=== PATIENT | female | born 1940 | race Caucasian/White ===

== ENCOUNTER → 2018-04-01 13:47 | Outpatient (BNVA) | payer MEDICARE, OTHER, SELFPAY | PROVIDERS: Visit Provider Student in an Organized Health Care Education/Training Program | DX: M65.331 Trigger finger, right middle finger (principal); Z98.890 Other specified postprocedural states | CPT/HCPCS: 99213 ==

== ENCOUNTER 2018-05-07 08:20 | Day surgery (SDC) | payer MEDICARE, OTHER, SELFPAY ==
[2018-05-07 08:32] VITALS: BP 177/74; PULSE 68; RESP 16; TEMP 36.2; O2SAT 93
[2018-05-07] MEDS: Bupivacaine 0.5% Pres-Free 30 ML VIAL (09:53)
[2018-05-07] MEDS: Lidocaine 1% Multi-Dose 50 ML VIAL (09:55)
--- NOTE | 2018-05-07 10:11 | W.PM.DSUDISC ---
Discharge Plan Disposition Patient Disposition: HOME Condition: Good Discharge Details Reason For Visit: RMF Trigger Finger Attending Provider: Sree Mejía Primary Care Provider: Genoveva Boss Home Meds and New Rx's Prescriptions: Continued calcium carbonate-vitamin D3 1 EACH tablet 1 ea PO BID RF: 0 Zyrtec 10 MG capsule 1 cap PO DAILY PRN Qty: 30 RF: 11 atenolol 25 MG tablet 25 mg PO DAILY Qty: 30 RF: 12 levothyroxine 50 MCG tablet 50 mcg PO DAILY Qty: 30 RF: 12 hydrochlorothiazide 25 MG tablet 0.5 tab PO DAILY Qty: 30 RF: 12 Prilosec OTC 20 mg Tablet,Delayed Release (Dr/Ec) 20 mg PO PRN PRNRF: 0 ibuprofen 600 MG tablet 600 mg PO TID PRN PRNQty: 30 RF: 3 acetaminophen [Acetaminophen Extra Strength] 500 MG tablet 1,000 mg PO TID PRN PRNQty: 90 RF: 0 Discharge Instructions Stand Alone Forms: Kym Carreon Finger Kristel Santiago (DSU) Referrals: Sree Mejía MD [ [facility] STAFF PHYSICIAN] - Activity:: Elevate Remove Dressings/Wound Care:: 48 hours Shower/Bathe:: 48 hours Diet:: As Tolerated Discharge Orders Discharge Orders: Discharge Order (Routine); Ordered 05/07/18 Ordered By: Sree Mejía DS: Diagnosis Discharge Diagnosis (1) Trigger finger, right middle finger: Status: Chronic
--- NOTE | 2018-05-08 05:55 | ROE_ITS ---
Date of service: 05/07/18 Time of Service: 13:53 Operative Note DATE OF PROCEDURE: 05/07/18 PRE-OP DIAGNOSIS: Trigger Finger -right middle finger POST-OP DIAGNOSIS: same PROCEDURE: Trigger Finger Release -right middle finger SURGEON: Sree Mejía ANESTHESIA: local ESTIMATED BLOOD LOSS: 5 PATHOLOGY: none sent COMPLICATIONS: None Patient was transported to: same day Patient's condition: stable Indications: I have seen Annalisa in clinic for symptoms of a trigger finger. The catching, clicking, locking, and pain limited function. The diagnosis of trigger finger was evident. The symptoms had not responded to conservative measures. I discussed trigger finger release with the patient. I reviewed the risks of the procedure to include, but not limited to, bleeding, infection, pain, stiffness, incomplete release, damage to nerves or vessels, continued catching, recurrence. Despite these risks, the patient elected to proceed. Findings: There was a tightened A1 bartolo which was released. The flexor tendons were inspected and did show some fraying along their periphery. The patient was able to move the finger without any catching, clicking, or locking. Procedure Description: Annalisa was greeted in the preoperative holding area where the correct side was identified and marked. The consent was reviewed with the patient and signed. All questions were answered. She was taken back to the operating room. The patient was placed into the supine position on the operating room table with the right arm on an arm board. All bony prominences were well padded. No prophylactic antibiotics were administered since this was a clean, elective hand surgical case. The right arm was then prepped with Chloraprep and draped in a standard fashion with stockinette and extremity drape. A timeout to confirm correct identity, side and site, procedure, allergies, anesthesia, and medical concerns was performed. The surgical site was marked as a longitudinal incision directly over the A1 bartolo of the involved digit, middle finger. This was confirmed with palpation during finger flexion. This area, overlying the metacarpal head, was then anesthetized with 1% Lidocaine. The patient tolerated this well and once the anesthetic had setup, the procedure began. A longitudinal incision was made through skin only, approximately 1cm. The deep tissues were dissected bluntly. Once the A1 bartolo and flexor tendons were identified the soft tissue including neurovascular structures were retracted medially and laterally. There were no crossing structures over the A1 bartolo. The proximal edge of the bartolo was identified and the bartolo was incised with tenotomy scissors. There was a rel ease of the tendons once this was fully released. The tendons were then removed from the wound and inspected. Excess synovium was resected. The tendons were then returned and the patient was asked to move the finger into deep flexion and back to extension. There was no recreation of the pre-operative symptoms. The hand was then once more inspected for any A0 bartolo or area of possible constri ction. The wound was then irrigated and the skin was closed with a 4-0 Nylon. This was dressed with gauze and a Conform dressing. The patient tolerated the procedure well and was returned to the Same Day Surgery area in a stable condition suffering no known complication.
== END 2018-05-07 10:41 | disposition home or self-care (01) ==
PROVIDERS: Visit Provider Student in an Organized Health Care Education/Training Program
PROC: (CPT 26055; principal; 2018-05-07 10:15)
DX: M65.331 Trigger finger, right middle finger (principal)
CPT/HCPCS: 26055

== ENCOUNTER → 2018-05-15 08:23 | Outpatient (BNVA) | payer MEDICARE, OTHER, SELFPAY | PROVIDERS: Visit Provider Student in an Organized Health Care Education/Training Program | DX: M65.331 Trigger finger, right middle finger (principal); Z47.89 Encounter for other orthopedic aftercare; I10 Essential (primary) hypertension ==

== ENCOUNTER 2018-07-01 16:56 | Emergency (ER) | payer MEDICARE, OTHER, SELFPAY ==
[2018-07-01] VITALS (31 sets, daily range): BP systolic 161–193; BP diastolic 71–105; PULSE 75–102; RESP 10–39; TEMP 36.7–37; O2SAT 92–100
--- NOTE | 2018-07-01 17:01 | W.ED.GENAD ---
Discharge Plan Disposition Patient Disposition: [facility] Condition: Stable Discharge Details Chief Complaint: Chest Pain Clinical Impression: Non-ST elevation [place] (NSTEMI) Primary Care Provider: Genoveva Boss ED Provider: Adam Ashton Home Meds and New Rx's Prescriptions: No Action calcium carbonate-vitamin D3 1 EACH tablet 1 ea PO BID RF: 0 Zyrtec 10 MG capsule 1 cap PO DAILY PRN Qty: 30 RF: 11 atenolol 25 MG tablet 25 mg PO DAILY Qty: 30 RF: 12 levothyroxine 50 MCG tablet 50 mcg PO DAILY Qty: 30 RF: 12 hydrochlorothiazide 25 MG tablet 0.5 tab PO DAILY Qty: 30 RF: 12 Prilosec OTC 20 mg Tablet,Delayed Release (Dr/Ec) 20 mg PO PRN PRNRF: 0 ibuprofen 600 MG tablet 600 mg PO TID PRN PRNQty: 30 RF: 3 acetaminophen [Acetaminophen Extra Strength] 500 MG tablet 1,000 mg PO TID PRN PRNQty: 90 RF: 0 Medical Decision Making 78 yo female with hx of HTN comes in with intermittent chest/back/left arm stabbing sensation that lasts 15 minutes or so and goes away on it's own since earlier in June. Denies having this in the past. Denies n/v, sob, abd pain. She saw her pcp's office today and had an ekg showing possible old heart attack so was sent here. She is walking without distress or pain and has no symptoms now. Denies any pain with exertion, she does state that some positions make the pain worse. She has normal peripheral pulses, clear lungs, no leg swelling or calf pain. Her heart score is 3, will send troponin. She hasn't had pain for over 4 hours so one troponin should be sufficient to rule out nstemi. No tearing back pain and normal vascular exam so doubt dissection. No hypoxia, tachycardia or evidence of dvt so doubt PE. Normal lung exam and no pleuritic pain, no cough or fever so doubt pna and ptx. She does state she has a hx of compression fx's, denies recent trauma. Does have pain with palpation to t3-4 on exam, will obtain xrays to eval for possible compression fx. labs show troponin of over 7, remains HD stable on exam and pain free. Xrays negative. Spoke with cardiology [place] [facility] [place], who recommends 300mg plavix instead of 75mg I ordered (also ordered asa and heparin) and they will accept the pt (accepting is Dr. Butterfield) in transfer but request CTA to eval for dissection first. CTA on my read shows no dissection, awaiting vrad report pt remains HD stable, vrad agrees no acute findings. Await[place] to [facility] [place] Differential Diagnosis acs, anxiety, dissection, musculoskeletal chest pain Medical Records Medical records reviewed: Yes I reviewed the patient's medical records. Imaging Data Radiologic Study: Attestation: I personally reviewed and interpreted this imaging study as follows: Imaging: X-Ray Radiologist's impression: EXAM: XR Thoracic Spine, 3 Views EXAM DATE/TIME: 07/01/2018 5:33 PM CLINICAL HISTORY: 78 years old, female; Pain in thoracic spine; Without myelpathy or radiculopathy TECHNIQUE: Imaging protocol: XR of the thoracic spine, 3 views. COMPARISON: CR THORACIC SPINE 12/06/2016 10:35 AM FINDINGS: Vertebrae: Stable chronic mid thoracic compression deformities, with approximately 50% loss in vertebral body height. No acute skeletal pathology is otherwise grossly noted. There are multilevel degenerative changes of the thoracic spine, as manifested by decreased intervertebral disc space, endplate sclerosis, and multilevel anterior osteophytes. Spinal canal appears patent. There is diffuse facet joint hypertrophy. Soft tissues: Normal. Other findings: No acute findings in the visualized chest. 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 Radiologic Study #2: Attestation: I personally reviewed and interpreted this imaging study as follows: Imaging: X-Ray Radiologist's impression: EXAM: XR Chest, 2 Views EXAM DATE/TIME: 07/01/2018 5:18 PM CLINICAL HISTORY: 78 years old, female; Chest pain; Type not specified TECHNIQUE: Imaging protocol: XR of the chest, 2 views. COMPARISON: No relevant prior studies available. FINDINGS: Lungs: Unremarkable. No consolidation. Pleural space: Unremarkable. No pleural effusion. No pneumothorax. Heart/Mediastinum: Unremarkable. No cardiomegaly. Bones/joints: No acute skeletal abnormality. IMPRESSION: Negative for acute thoracic pathology. Radiologic Study #3: Attestation: I personally reviewed and interpreted this imaging study as follows: Imaging: CT Scan Radiologist's impression: IMPRESSION: 1. Negative for acute thoracic pathology. 2. Chronic/incidental findings as detailed above. Lab Data Lab results reviewed: Yes I reviewed the patient's lab results. ECG Data Attestation: I personally reviewed and interpreted this ECG (s) as follows: Prior ECG tracings: available for review Interpretation: sinus rhythm ,rate of 82, qtc 437, no acute st t wave ischemic changes compared to her old ekg from 2006 HPI General Mode of arrival: ambulatory. Date/Time Provider Initiated Documentation: 07/01/18 16:59. Limitations to Documentation: no limitations. Information obtained by: patient. History of Present Illness 78 year old F presents to the emergency department with the chief complaint of chest pain, described as moderate, Quality is described as stabbing and aching, and is localized to the chest, back, left, right and upper extremity. Patient started experiencing this week(s) (3) and it has been intermittent. No relieving factors improve symptom(s), No exacerbating factors reported . Patient notes no other symptoms.. Patient did receive the following treatments prior to arrival, none Related Data Home Medications Medication Instructions Recorded Confirmed Zyrtec 1 cap PO DAILY PRN #30 cap 06/06/12 07/01/18 calcium carbonate-vitamin D3 1 ea PO BID 06/06/12 07/01/18 acetaminophen [Acetaminophen Extra 1,000 mg PO TID PRN PRN #90 tab 12/10/16 07/01/18 Strength] atenolol 25 mg PO DAILY #30 tab 07/22/17 07/01/18 hydrochlorothiazide 0.5 tab PO DAILY #30 tab 07/22/17 07/01/18 levothyroxine 50 mcg PO DAILY #30 tab 07/22/17 07/01/18 Prilosec OTC 20 mg PO PRN PRN 05/07/18 07/01/18 ibuprofen 600 mg PO TID PRN PRN #30 tab 05/07/18 07/01/18 Previous Rx's Medication Instructions Recorded acetaminophen [Acetaminophen Extra 1,000 mg PO TID PRN PRN #90 tab 12/10/16 Strength] atenolol 25 mg PO DAILY #30 tab 07/22/17 hydrochlorothiazide 0.5 tab PO DAILY #30 tab 07/22/17 levothyroxine 50 mcg PO DAILY #30 tab 07/22/17 ibuprofen 600 mg PO TID PRN PRN #30 tab 05/07/18 Allergies Allergy/AdvReac Type Severity Reaction Status Date / Time No Known Allergies Allergy Unverified 07/01/18 17:02 General Stated Complaint: Chest Pain SAMARA: 3 Review of Systems Review of Systems All systems reviewed & are unremarkable except as noted in HPI and below Constitutional Denies chills, Denies fever(s) and Denies weakness Cardiovascular Denies dyspnea Respiratory Denies cough and Denies dyspnea Gastrointestinal Denies abdominal pain, Denies nausea and Denies vomiting Integumentary/Breasts Denies rash Neurologic Denies weakness [facility] Medical History Back pain Dyspnea Essential hypertension Hypothyroidism SNHL (sensorineural hearing loss) Surgical History BROKEN TIBIA (~2000) Colonoscopy - IV Sedation (11/19/16) Family History Mother Essential hypertension Heart disease Asthma Father Heart disease Sister Essential hypertension Heart disease Hyperlipidemia Sister No problems noted. Brother No problems noted. Son Diabetes Essential hypertension Son Essential hypertension Son No problems noted. Social History Smoking/Tobacco Use Status: Never Drug use: Never Do you feel safe at home: Yes Do you feel safe in your relationship?: Yes Exam Const General: no acute distress Orientation: alert HENMT Head: normal to inspection Ears: external ears normal General nose exam: external nose normal Mouth: moist mucous membranes Eyes General: appearance normal, both eyes and all related structures Neck Neck: normal visual inspection Resp Effort & Inspection: normal respiratory effort and able to speak in complete sentences Cardio Rate: regular rate Skin General skin exam: no rashes or lesions noted Neuro General: alert and oriented x3 Extrem General: normal to inspection Psych Mental Status: mental status grossly normal Course Vital Signs Respiratory Rate 16 07/01/18 16:58 Temperature Source Temporal Artery Scan 07/01/18 16:58 Respiratory Rate 16 07/01/18 16:58 Blood Pressure Position Supine 07/01/18 16:58 Oxygen Delivery Method Room Air 07/01/18 16:58 Oxygen Flow Rate 0 07/01/18 16:58 Pain Level 0 07/01/18 16:58
--- NOTE | 2018-07-01 17:08 | ED.GENADUL_ITS ---
Discharge Plan Disposition Patient Disposition: [facility] Condition: Stable Discharge Details Chief Complaint: Chest Pain Clinical Impression: Non-ST elevation [place] (NSTEMI) Primary Care Provider: Genoveva Boss ED Provider: Adam Ashton Home Meds and New Rx's Prescriptions: No Action calcium carbonate-vitamin D3 1 EACH tablet 1 ea PO BID RF: 0 Zyrtec 10 MG capsule 1 cap PO DAILY PRN Qty: 30 RF: 11 atenolol 25 MG tablet 25 mg PO DAILY Qty: 30 RF: 12 levothyroxine 50 MCG tablet 50 mcg PO DAILY Qty: 30 RF: 12 hydrochlorothiazide 25 MG tablet 0.5 tab PO DAILY Qty: 30 RF: 12 Prilosec OTC 20 mg Tablet,Delayed Release (Dr/Ec) 20 mg PO PRN PRNRF: 0 ibuprofen 600 MG tablet 600 mg PO TID PRN PRNQty: 30 RF: 3 acetaminophen [Acetaminophen Extra Strength] 500 MG tablet 1,000 mg PO TID PRN PRNQty: 90 RF: 0 Medical Decision Making 78 yo female with hx of HTN comes in with intermittent chest/back/left arm stabbing sensation that lasts 15 minutes or so and goes away on it's own since earlier in June. Denies having this in the past. Denies n/v, sob, abd pain. She saw her pcp's office today and had an ekg showing possible old heart attack so was sent here. She is walking without distress or pain and has no symptoms now. Denies any pain with exertion, she does state that some positions make the pain worse. She has normal peripheral pulses, clear lungs, no leg swelling or calf pain. Her heart score is 3, will send troponin. She hasn't had pain for over 4 hours so one troponin should be sufficient to rule out nstemi. No tearing back pain and normal vascular exam so doubt dissection. No hypoxia, tachycardia or evidence of dvt so doubt PE. Normal lung exam and no pleuritic pain, no cough or fever so doubt pna and ptx. She does state she has a hx of compression fx's, denies recent trauma. Does have pain with palpation to t3-4 on exam, will obtain xrays to eval for possible compression fx. labs show troponin of over 7, remains HD stable on exam and pain free. Xrays negative. [place] [facility] [place], who recommends 300mg plavix instead of 75mg I ordered (also ordered asa and heparin) and they will accept the pt (accepting is Dr. Butterfield) in transfer but request CTA to eval for dissection first. CTA on my read shows no dissection, awaiting vrad report pt remains HD stable, vrad agrees no acute findings. [place] [facility] [place] Differential Diagnosis acs, anxiety, dissection, musculoskeletal chest pain Medical Records Medical records reviewed: Yes I reviewed the patient's medical records. Imaging Data Radiologic Study: Attestation: I personally reviewed and interpreted this imaging study as follows: Imaging: X-Ray Radiologist's impression: EXAM: XR Thoracic Spine, 3 Views EXAM DATE/TIME: 07/01/2018 5:33 PM CLINICAL HISTORY: 78 years old, female; Pain in thoracic spine; Without myelpathy or radiculopathy TECHNIQUE: Imaging protocol: XR of the thoracic spine, 3 views. COMPARISON: CR THORACIC SPINE 12/06/2016 10:35 AM FINDINGS: Vertebrae: Stable chronic mid thoracic compression deformities, with approximately 50% loss in vertebral body height. No acute skeletal pathology is otherwise grossly noted. There are multilevel degenerative changes of the thoracic spine, as manifested by decreased intervertebral disc space, endplate sclerosis, and multilevel anterior osteophytes. Spinal canal appears patent. There is diffuse facet joint hypertrophy. Soft tissues: Normal. Other findings: No acute findings in the visualized chest. 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 Radiologic Study #2: Attestation: I personally reviewed and interpreted this imaging study as follows: Imaging: X-Ray Radiologist's impression: EXAM: XR Chest, 2 Views EXAM DATE/TIME: 07/01/2018 5:18 PM CLINICAL HISTORY: 78 years old, female; Chest pain; Type not specified TECHNIQUE: Imaging protocol: XR of the chest, 2 views. COMPARISON: No relevant prior studies available. FINDINGS: Lungs: Unremarkable. No consolidation. Pleural space: Unremarkable. No pleural effusion. No pneumothorax. Heart/Mediastinum: Unremarkable. No cardiomegaly. Bones/joints: No acute skeletal abnormality. IMPRESSION: Negative for acute thoracic pathology. Radiologic Study #3: Attestation: I personally reviewed and interpreted this imaging study as follows: Imaging: CT Scan Radiologist's impression: IMPRESSION: 1. Negative for acute thoracic pathology. 2. Chronic/incidental findings as detailed above. Lab Data Lab results reviewed: Yes I reviewed the patient's lab results. ECG Data Attestation: I personally reviewed and interpreted this ECG (s) as follows: Prior ECG tracings: available for review Interpretation: sinus rhythm ,rate of 82, qtc 437, no acute st t wave ischemic changes compared to her old ekg from 2006 HPI General Mode of arrival: ambulatory . Date/Time Provider Initiated Documentation: 07/01/18 16:59 . Limitations to Documentation: no limitations . Information obtained by: patient . History of Present Illness 78 year old F presents to the emergency department with the chief complaint of chest pain, described as moderate, Quality is described as stabbing and aching, and is localized to the chest, back, left, right and upper extremity. Patient started experiencing this week(s) (3) and it has been intermittent. No relieving factors improve symptom(s), No exacerbating factors reported . Patient notes no other symptoms.. Patient did receive the following treatments prior to arrival, none Related Data Home Medications Medication Instructions Recorded Confirmed Zyrtec 1 cap PO DAILY PRN #30 cap 06/06/12 07/01/18 calcium carbonate-vitamin D3 1 ea PO BID 06/06/12 07/01/18 acetaminophen [Acetaminophen Extra 1,000 mg PO TID PRN PRN #90 tab 12/10/16 07/01/18 Strength] atenolol 25 mg PO DAILY #30 tab 07/22/17 07/01/18 hydrochlorothiazide 0.5 tab PO DAILY #30 tab 07/22/17 07/01/18 levothyroxine 50 mcg PO DAILY #30 tab 07/22/17 07/01/18 Prilosec OTC 20 mg PO PRN PRN 05/07/18 07/01/18 ibuprofen 600 mg PO TID PRN PRN #30 tab 05/07/18 07/01/18 Previous Rx's Medication Instructions Recorded acetaminophen [Acetaminophen Extra 1,000 mg PO TID PRN PRN #90 tab 12/10/16 Strength] atenolol 25 mg PO DAILY #30 tab 07/22/17 hydrochlorothiazide 0.5 tab PO DAILY #30 tab 07/22/17 levothyroxine 50 mcg PO DAILY #30 tab 07/22/17 ibuprofen 600 mg PO TID PRN PRN #30 tab 05/07/18 Allergies Allergy/AdvReac Type Severity Reaction Status Date / Time No Known Allergies Allergy Unverified 07/01/18 17:02 General Stated Complaint: Chest Pain SAMARA: 3 Review of Systems Review of Systems All systems reviewed & are unremarkable except as noted in HPI and below Constitutional Denies chills, Denies fever(s) and Denies weakness Cardiovascular Denies dyspnea Respiratory Denies cough and Denies dyspnea Gastrointestinal Denies abdominal pain, Denies nausea and Denies vomiting Integumentary/Breasts Denies rash Neurologic Denies weakness [facility] Medical History Back pain Dyspnea Essential hypertension Hypothyroidism SNHL (sensorineural hearing loss) Surgical History BROKEN TIBIA (~2000) Colonoscopy - IV Sedation (11/19/16) Family History Mother Essential hypertension Heart disease Asthma Father Heart disease Sister Essential hypertension Heart disease Hyperlipidemia Sister No problems noted. Brother No problems noted. Son Diabetes Essential hypertension Son Essential hypertension Son No problems noted. Social History Smoking/Tobacco Use Status: Never Drug use: Never Do you feel safe at home: Yes Do you feel safe in your relationship?: Yes Exam Const General: no acute distress Orientation: alert HENMT Head: normal to inspection Ears: external ears normal General nose exam: external nose normal Mouth: moist mucous membranes Eyes General: appearance normal, both eyes and all related structures Neck Neck: normal visual inspection Resp Effort & Inspection: normal respiratory effort and able to speak in complete sentences Cardio Rate: regular rate Skin General skin exam: no rashes or lesions noted Neuro General: alert and oriented x3 Extrem General: normal to inspection Psych Mental Status: mental status grossly normal Course Vital Signs Respiratory Rate 16 07/01/18 16:58 Temperature Source Temporal Artery Scan 07/01/18 16:58 Respiratory Rate 16 07/01/18 16:58 Blood Pressure Position Supine 07/01/18 16:58 Oxygen Delivery Method Room Air 07/01/18 16:58 Oxygen Flow Rate 0 07/01/18 16:58 Pain Level 0 07/01/18 16:58
[2018-07-01 17:15] LABS: Abs Immature Grans 0.01 k/cumm (0.0-0.09); Absolute Basophil Count 0.03 k/cumm (0.0-0.2); Absolute Eosinophil Count 0.17 k/cumm (0.0-0.7); Absolute Lymphocyte Count 2.48 k/cumm (1.2-3.4); Absolute Monocyte Count 0.73 k/cumm (0.11-0.7); Absolute Neutrophil Count 3.62 k/cumm (1.2-6.7); Basophils % 0.4; Eosinophils % 2.4; HCT 43.4 % (36.0-46.0); HGB 14.6 g/dL (12.0-15.5); Immature Grans % 0.1; Lymphocytes % 35.2; Mean Corp. HGB Concentration 33.6 g/dL (32.0-36.0); Mean Corpuscular Hemoglobin 30.9 pg (27.0-33.0); Mean Corpuscular Volume 91.9 fL (80-95); Mean Platelet Volume 9.1 fL (8.0-11.0); Monocytes % 10.4; Neutrophils % 51.5; Platelet Count 271 x1000/uL (130-400); RBC 4.72 m/cumm (4.00-5.20); RBC Distribution Width 13.6 % (11.7-14.6); White Blood Cell Count 7.04 k/cumm (4.4-10.8)
--- NOTE | 2018-07-01 17:17 | DI.COMBO_ITS ---
SYMPTOM/DIAGNOSIS: UPPER BACK/CHEST PAIN CT ANGIOGRAPHY CHEST: CT angiography was performed with multi slice acquisition and multi planar and 3D reconstruction. CT angiography of the chest was performed with a bolus infusion of 100 cc's of Omnipaque 350. Note is made of mild chronic anterior vertebral compression fractures of T 8 and T 9 vertebral bodies, unchanged from chest film of 12/06/16. No evidence of pulmonary embolic disease. Thoracic aorta and major branches are within normal limits. No aneurysm or dissection. No mediastinal or hilar adenopathy. Apparent surgical clips noted in right axilla. The lungs are predominantly clear with minimal linear scarring in the lung bases. Tracheobronchial tree appears intact. Images obtained through the upper abdomen show unremarkable appearance of visualized portions of liver, spleen, pancreas, adrenals and kidneys. Upper abdominal aorta and major branches appear intact. CONCLUSION: No evidence of acute thoracic pathology. THORACIC SPINE: Three views were obtained and show previously present T 8 and T 9 vertebral compression fractures, no change in appearance from 2017 chest film. Mild hypertrophic spurring of the vertebral endplates noted throughout the thoracic region. No evidence of acute process. PA AND LATERAL CHEST: The heart is not enlarged. There appear to be changes of COPD. No pleural effusion. The lungs are otherwise clear. CONCLUSION: No evidence of acute disease.
[2018-07-01 17:27] LABS: INR 0.9 (0.9-1.1); PTT Activated 20.7 sec (21.0-31.4); Prothrombin Time 9.3 sec (9.3-11.0)
[2018-07-01 17:28] LABS: ALT 36 U/L (12-78); AST 86 U/L (15-37); Albumin 4.2 g/dL (3.4-5.0); Alkaline Phosphatase 83 U/L (46-116); Anion Gap 7.6 mmol/L (3-11); BUN 15 mg/dL (7-18); Bilirubin, Total 0.5 mg/dL (0.2-1.0); CO2 31.4 mmol/L (21.0-32.0); CREATININE 0.76 mg/dL (0.55-1.02); Calcium 9.9 mg/dL (8.5-10.1); Chloride 98 mmol/L (98-107); Glucose 96 mg/dL (70-100); Potassium 3.9 mmol/L (3.5-5.1); Sodium 137 mmol/L (136-145); Total Protein 8.1 g/dL (6.4-8.2)
[2018-07-01 17:31] LABS: Troponin I 7.47 ng/mL (0.00-0.06)
[2018-07-01] MEDS: Aspirin 81 MG CHEW 324 MG CH (17:43)
[2018-07-01] MEDS: Clopidogrel 75 MG TAB PO (17:43)
--- NOTE | 2018-07-01 17:57 | DI.VRAD_ITS ---
EXAM: XR Thoracic Spine, 3 Views EXAM DATE/TIME: 07/01/2018 5:33 PM CLINICAL HISTORY: 78 years old, female; Pain in thoracic spine; Without myelpathy or radiculopathy TECHNIQUE: Imaging protocol: XR of the thoracic spine, 3 views. COMPARISON: CR THORACIC SPINE 12/06/2016 10:35 AM FINDINGS: Vertebrae: Stable chronic mid thoracic compression deformities, with approximately 50% loss in vertebral body height. No acute skeletal pathology is otherwise grossly noted. There are multilevel degenerative changes of the thoracic spine, as manifested by decreased intervertebral disc space, endplate sclerosis, and multilevel anterior osteophytes. Spinal canal appears patent. There is diffuse facet joint hypertrophy. Soft tissues: Normal. Other findings: No acute findings in the visualized chest. 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 Dictated and Authenticated by: Taz Rosario MD. Ordering:JUSTIN Medina MD
--- NOTE | 2018-07-01 17:58 | DI.VRAD_ITS ---
EXAM: XR Chest, 2 Views EXAM DATE/TIME: 07/01/2018 5:18 PM CLINICAL HISTORY: 78 years old, female; Chest pain; Type not specified TECHNIQUE: Imaging protocol: XR of the chest, 2 views. COMPARISON: No relevant prior studies available. FINDINGS: Lungs: Unremarkable. No consolidation. Pleural space: Unremarkable. No pleural effusion. No pneumothorax. Heart/Mediastinum: Unremarkable. No cardiomegaly. Bones/joints: No acute skeletal abnormality. IMPRESSION: Negative for acute thoracic pathology. Dictated and Authenticated by: Taz Rosario MD. Ordering:JUSTIN Medina MD
[2018-07-01] MEDS: Omnipaque 350 MG/ML 100 ML BTL IJ (18:22)
--- NOTE | 2018-07-01 18:38 | DI.VRAD_ITS ---
EXAM: CT Angiography Chest With Contrast EXAM DATE/TIME: 07/01/2018 5:55 PM CLINICAL HISTORY: 78 years old, female; Chest pain; Type not specified TECHNIQUE: Imaging protocol: Axial computed tomographic angiography images of the chest with intravenous contrast using CT angiography protocol. 3D rendering: MIP reconstructed images were created and reviewed. Radiation optimization: All CT scans at this facility use at least one of these dose optimization techniques: automated exposure control; mA and/or kV adjustment per patient size (includes targeted exams where dose is matched to clinical indication); or iterative reconstruction. Contrast material: OMNIPAQUE 350; Contrast volume: 100 ml; Contrast route: IV; COMPARISON: CR XR CHEST 2V PA LATERAL 07/01/2018 5:27 PM FINDINGS: Pulmonary arteries: Normal. No pulmonary emboli. Aorta: The aorta demonstrates mild atherosclerotic calcification. Normal course and caliber to the aorta otherwise. No acute aortic pathology. Lungs: Mild pulmonary hyperexpansion, favoring mild COPD. Mild bilateral apical capping. Mild diffuse cylindrical bronchiectasis. Mild bilateral linear atelectasis/scarring. No acute interstitial or airspace disease. Pleural space: Normal. No pneumothorax. No pleural effusion. Heart: Normal. No cardiomegaly. No pericardial effusion. Upper abdomen: No acute findings in the visualized upper abdominal organs. Lymph nodes: Question of prior right axillary lymph node dissection. No concerning thoracic adenopathy by CT size criteria. Bones/joints: No acute skeletal abnormality or aggressive osseous lesion. Chronic compression injuries of the mid thoracic vertebra specifically, at T7 and T8 with approximately 50% loss in vertebral body height. Multilevel degenerative changes throughout the thoracic spine. Soft tissues: No acute findings. IMPRESSION: 1. Negative for acute thoracic pathology. 2. Chronic/incidental findings as detailed above. Dictated and Authenticated by: Taz Rosario MD. Ordering:JUSTIN Medina MD
[2018-07-01] MEDS: Clopidogrel 300 MG TAB 225 MG PO (18:50)
== END 2018-07-01 20:45 | disposition short-term general hospital (02) ==
PROVIDERS: Emergency Provider Emergency Medicine
DX: I21.4 Non-ST elevation (NSTEMI) myocardial infarction (principal); M51.34 Other intervertebral disc degeneration, thoracic region; I10 Essential (primary) hypertension
CPT/HCPCS: 36415; 71275; 80053; 93005; 96365; 99285; 71046; 72072; 84484; 85025; 85610; 85730; 93010; J3490

== ENCOUNTER 2018-07-20 02:15 | Outpatient (CLI) | payer MEDICARE, OTHER, SELFPAY ==
--- NOTE | 2018-07-20 09:16 | DI.CT_ITS ---
SYMPTOM/DIAGNOSIS: EVALUATE RT PATELLAR FX, S82.001A RIGHT KNEE CT: There are no plain films available for comparison. There is a moderate sized hemarthrosis. There is a comminuted patellar fracture. A main component of the fracture extends transversely through the mid patella. There is step off at the articular surface of 3 mm. There is also multiple fracture lines extending through the inferior pole of the patella which are not significantly displaced. The distal femur, proximal tibia and fibula appear intact. IMPRESSION: Comminuted fracture of the inferior pole of the patella.
== END 2018-07-20 02:35 ==
PROVIDERS: Visit Provider Student in an Organized Health Care Education/Training Program
DX: S82.044A Nondisplaced comminuted fracture of right patella, initial encounter for closed fracture (principal); I21.4 Non-ST elevation (NSTEMI) myocardial infarction; W19.XXXA Unspecified fall, initial encounter; I10 Essential (primary) hypertension
CPT/HCPCS: 99214; 73700

== ENCOUNTER 2018-08-03 13:11 | Outpatient (CLI) | payer MEDICARE, OTHER, SELFPAY ==
--- NOTE | 2018-08-03 13:02 | DI.RAD_ITS ---
SYMPTOMS/DIAGNOSIS: F/U RIGHT PATELLAR FX RIGHT KNEE: Two views were obtained. The previously described patellar fracture again noted with no gross interval change in alignment of the fracture fragments in comparison with the previous CT of 07/20/2018.
== END 2018-08-03 13:31 ==
PROVIDERS: Visit Provider Student in an Organized Health Care Education/Training Program
DX: S82.001A Unspecified fracture of right patella, initial encounter for closed fracture (principal); W19.XXXA Unspecified fall, initial encounter; I10 Essential (primary) hypertension
CPT/HCPCS: 99212; 99213; 73560

== ENCOUNTER 2018-08-24 13:55 | Outpatient (CLI) | payer MEDICARE, OTHER, SELFPAY ==
--- NOTE | 2018-08-24 13:53 | DI.RAD_ITS ---
SYMPTOM/DIAGNOSIS: F/U RT PATELLAR FX RIGHT KNEE: Comparison is made with 08/03/18. There has been no change in the alignment of the patellar fracture. The bones appear osteoporotic.
== END 2018-08-24 14:15 ==
PROVIDERS: Visit Provider Student in an Organized Health Care Education/Training Program
DX: S82.044D Nondisplaced comminuted fracture of right patella, subsequent encounter for closed fracture with routine healing (principal); M85.88 Other specified disorders of bone density and structure, other site; X58.XXXD Exposure to other specified factors, subsequent encounter; I10 Essential (primary) hypertension
CPT/HCPCS: 99213; 73560

== ENCOUNTER 2018-08-27 01:44 | Outpatient (CLI) | payer MEDICARE, OTHER, SELFPAY ==
[2018-08-27 12:28] LABS: ALT 42 U/L (12-78); AST 30 U/L (15-37); Albumin 3.8 g/dL (3.4-5.0); Alkaline Phosphatase 88 U/L (46-116); Anion Gap 9.1 mmol/L (3-11); BUN 9 mg/dL (7-18); Bilirubin, Total 0.5 mg/dL (0.2-1.0); CO2 26.9 mmol/L (21.0-32.0); CREATININE 0.52 mg/dL (0.55-1.02); Calcium 8.6 mg/dL (8.5-10.1); Calculated LDL 63 mg/dL; Chloride 106 mmol/L (98-107); Cholesterol 133 mg/dL (50-200); Glucose 82 mg/dL (70-100); HDL Cholesterol 61 mg/dL (40-60); Potassium 4.4 mmol/L (3.5-5.1); Sodium 142 mmol/L (136-145); TSH (W/Ref FT4) 3.18 uIU/mL (0.358-3.74); Total Protein 6.9 g/dL (6.4-8.2); Triglyceride 48 mg/dL (30-150)
== END 2018-08-27 02:04 ==
DX: E03.9 Hypothyroidism, unspecified (principal); I22.2 Subsequent non-ST elevation (NSTEMI) myocardial infarction; J30.9 Allergic rhinitis, unspecified; R05 Cough; R09.82 Postnasal drip
CPT/HCPCS: 36415; 80053; 80061; 83721; 84443

== ENCOUNTER 2019-05-10 09:49 | Outpatient (CLI) | payer MEDICARE, OTHER, SELFPAY | END 2019-05-10 10:09 | PROVIDERS: Visit Provider Internal Medicine Cardiovascular Disease | DX: I22.2 Subsequent non-ST elevation (NSTEMI) myocardial infarction (principal); I25.10 Atherosclerotic heart disease of native coronary artery without angina pectoris; I10 Essential (primary) hypertension | CPT/HCPCS: 99214; 93005; 93010 ==

== ENCOUNTER → 2019-11-09 12:46 | Outpatient (BNVA) | payer MEDICARE, OTHER, SELFPAY | PROVIDERS: Visit Provider Internal Medicine Cardiovascular Disease | DX: I22.2 Subsequent non-ST elevation (NSTEMI) myocardial infarction (principal); I25.10 Atherosclerotic heart disease of native coronary artery without angina pectoris; I10 Essential (primary) hypertension; Z79.82 Long term (current) use of aspirin | CPT/HCPCS: 99214 ==

== ENCOUNTER 2020-02-15 01:25 | Outpatient (CLI) | payer MEDICARE, OTHER, SELFPAY ==
[2020-02-15 10:09] LABS: COMMENT (LAB VIEW ONLY) 23.32 mg/dL; Microalb ug/mg Crea 20.2 ug/mg Cr
[2020-02-15 10:20] LABS: ALT 30 U/L (14-59); AST 27 U/L (15-37); Albumin 4.1 g/dL (3.4-5.0); Alkaline Phosphatase 77 U/L (46-116); BUN 13 mg/dL (7-18); Bilirubin, Total 0.6 mg/dL (0.2-1.0); CREATININE 0.74 mg/dL (0.55-1.02); Calcium 8.8 mg/dL (8.5-10.1); Calculated LDL 51 mg/dL (<100); Chloride 94 mmol/L (98-107); Cholesterol 145 mg/dL (<200); Glucose 95 mg/dL (74-106); HDL Cholesterol 83 mg/dL (40-60); Potassium 4.1 mmol/L (3.5-5.1); Sodium 130 mmol/L (136-145); TSH (W/Ref FT4) 3.22 uIU/mL (0.36-3.74); Total Protein 7.1 g/dL (6.4-8.2); Triglyceride 55 mg/dL (<150)
== END 2020-02-15 01:45 ==
DX: I10 Essential (primary) hypertension (principal); E03.9 Hypothyroidism, unspecified; E78.5 Hyperlipidemia, unspecified; R05 Cough; G47.00 Insomnia, unspecified
CPT/HCPCS: 36415; 80053; 80061; 82043; 82570; 84443

== ENCOUNTER → 2020-05-08 11:16 | Outpatient (BNVA) | payer MEDICARE, OTHER, SELFPAY | PROVIDERS: Visit Provider Internal Medicine Cardiovascular Disease | DX: I22.2 Subsequent non-ST elevation (NSTEMI) myocardial infarction (principal); E78.5 Hyperlipidemia, unspecified; I10 Essential (primary) hypertension; Z79.899 Other long term (current) drug therapy | CPT/HCPCS: 99214; 99213 ==

== ENCOUNTER → 2020-11-14 11:05 | Outpatient (BNVA) | payer MEDICARE, OTHER, SELFPAY | PROVIDERS: Visit Provider Internal Medicine Cardiovascular Disease | DX: I25.2 Old myocardial infarction (principal); I25.10 Atherosclerotic heart disease of native coronary artery without angina pectoris; I10 Essential (primary) hypertension | CPT/HCPCS: 99213 ==

== ENCOUNTER 2020-12-28 01:16 | Outpatient (CLI) | payer MEDICARE, OTHER, SELFPAY ==
--- NOTE | 2020-12-28 09:15 | DI.US_ITS ---
Exam(s) US HERNIA EXAM: US HERNIA CLINICAL HISTORY: evaluate for suspected left inguinal hernia,K40.90. TECHNIQUE: Ultrasound was performed using standard protocol. COMPARISON: No exams were available for comparison FINDINGS: Sonographic assessment utilizing grayscale and color Doppler imaging was performed and targeted to th e area of clinical concern. If concerns apparently left groin region. Submitted images reveal what appears to be an inguinal hernia containing fat which is more visible w ith Valsalva maneuver. IMPRESSION: Positive for inguinal hernia. DATA REPOSITORY:
== END 2020-12-28 01:36 ==
DX: K40.90 Unilateral inguinal hernia, without obstruction or gangrene, not specified as recurrent (principal)
CPT/HCPCS: 76857

== ENCOUNTER → 2021-01-11 10:21 | Outpatient (BNVA) | payer MEDICARE, OTHER, SELFPAY | PROVIDERS: Visit Provider Surgery | DX: K46.9 Unspecified abdominal hernia without obstruction or gangrene (principal); K40.90 Unilateral inguinal hernia, without obstruction or gangrene, not specified as recurrent; J45.909 Unspecified asthma, uncomplicated; J45.990 Exercise induced bronchospasm | CPT/HCPCS: 99213 ==

== ENCOUNTER 2021-01-16 09:17 | Outpatient (CLI) | payer MEDICARE, OTHER, SELFPAY ==
[2021-01-16 12:58] LABS: ALT 25 U/L (14-59); AST 19 U/L (15-37); Albumin 3.6 g/dL (3.4-5.0); Alkaline Phosphatase 75 U/L (46-116); Anion Gap 7.3 mmol/L (3-11); BUN 16 mg/dL (7-18); Bilirubin, Total 0.4 mg/dL (0.2-1.0); CO2 29.7 mmol/L (21.0-32.0); CREATININE 0.8 mg/dL (0.55-1.02); Calcium 8.8 mg/dL (8.5-10.1); Calculated LDL 60 mg/dL (<100); Chloride 102 mmol/L (98-107); Cholesterol 133 mg/dL (<200); Glucose 91 mg/dL (74-106); HDL Cholesterol 65 mg/dL (40-60); Potassium 5.5 mmol/L (3.5-5.1); Sodium 139 mmol/L (136-145); TSH (W/Ref FT4) 2.63 uIU/mL (0.36-3.74); Total Protein 6.7 g/dL (6.4-8.2); Triglyceride 43 mg/dL (<150)
== END 2021-01-16 09:18 | disposition home or self-care (01) ==
LOC: LOS 09:18
DX: I10 Essential (primary) hypertension (principal); E78.5 Hyperlipidemia, unspecified; E03.9 Hypothyroidism, unspecified
CPT/HCPCS: 36415; 80053; 80061; 84443

== ENCOUNTER → 2021-04-30 08:49 | Outpatient (BNVA) | payer MEDICARE, OTHER, SELFPAY | PROVIDERS: Visit Provider Surgery | DX: Z01.818 Encounter for other preprocedural examination (principal); K40.90 Unilateral inguinal hernia, without obstruction or gangrene, not specified as recurrent | CPT/HCPCS: 99213 ==

== ENCOUNTER 2021-05-07 04:07 | Outpatient (CLI) | payer MEDICARE, OTHER, SELFPAY ==
[2021-05-07 12:51] LABS: Source Nasal/Nares
[2021-05-07 16:04] LABS: COVID-19 PCR Negative (Negative)
== END 2021-05-07 04:08 | disposition home or self-care (01) ==
LOC: LBO 04:07
PROVIDERS: Visit Provider Surgery
DX: Z20.822 Contact with and (suspected) exposure to COVID-19 (principal); Z01.818 Encounter for other preprocedural examination
CPT/HCPCS: 87635; U0005

== ENCOUNTER 2021-05-08 06:07 | Day surgery (SDC) | payer MEDICARE, OTHER, SELFPAY ==
--- NOTE | 2021-05-07 14:38 | PDOC.DSDIS_ITS ---
Discharge Plan Disposition Patient Disposition: HOME Condition: Good Discharge Details Reason For Visit: left inguinal hernia repair Attending Provider: Elif Warren Primary Care Provider: Genoveva Boss Home Meds and New Rx's Prescriptions: New tramadol [Ultram] 50 mg tablet 50 mg PO Q6H PRNQty: 7 0RF Continued aspirin [Gabrielle Chewable Aspirin] 81 mg tablet,chewable 81 mg PO DAILY 0RF Label Comments: Per [facility] [place] nitroglycerin 0.4 mg tablet, sublingual 0.4 mg SL Q5-15M PRN0RF Advair HFA 230-21 mcg/actuation HFA aerosol inhaler 2 puff inhalation BID Qty: 8 2RF Rx Instructions: administer with spacer albuterol sulfate [Ventolin HFA] 90 mcg/actuation HFA aerosol inhaler 2 puff inhalation QID PRN (Reason: shortness of breath or wheezing) Qty: 18 4RF pantoprazole 20 mg tablet,delayed release (DR/EC) 20 mg PO DAILY Qty: 90 6RF calcium carbonate-vitamin D3 1 EACH tablet 1 ea PO BID 0RF Zyrtec 10 MG capsule 1 cap PO DAILY PRN Qty: 30 11RF atorvastatin [Lipitor] 80 mg tablet 80 mg PO QHS Qty: 90 5RF carvedilol 25 mg tablet 25 mg PO BID Qty: 180 3RF Rx Instructions: must administer with a meal/food levothyroxine 50 mcg tablet 50 mcg PO DAILY Qty: 30 12RF acetaminophen [Acetaminophen Extra Strength] 500 MG tablet 1,000 mg PO TID PRN PRNQty: 90 0RF losartan 100 mg tablet 100 mg PO HS 0RF Discharge Instructions Additional Instructions: Dr. Warren HERNIA REPAIR ? POSTOPERATIVE INSTRUCTIONS Patients who have this type of surgery can usually be expected to return to work within two weeks and have minimal amounts of discomfort. ? ACTIVITY: The day of surgery should be spent resting. However, you can be up for short periods of time, I.E., going to the bathroom or kitchen. Avoid lifting or straining. On the day following surgery, you can be up and about as desired. ? LIFTING: Restrict your lifting to no more than five (5) pounds for the first week following surgery. For the second week after surgery, don?t lift more than ten pounds.? We will decide when you are done with restrictions and when you can return to work, at your follow-up appointment.? No sexual activity for two weeks.? ? DIET: There are no dietary restrictions following surgery. However, you may want to start with small amounts of liquids to avoid nausea the day of surgery. ? INCISION CARE: You will notice purple skin glue closing the incision.? Do not peel this off- it will wear off on its own.? After 24 hours you may shower. The dressing may be replaced for comfort, but is not necessary. ?An ice bag may be applied to the incision for 72 hours following surgery. ? SIGNS OF INFECTION: It is not unusual to have some black and blue discoloration of the skin around the incision, ?It will slowly disappear. If you have any increased redness, drainage, fever (above 100 degrees), please contact your doctor for an examination. ? DISCOMFORT: You may expect to have some mild discomfort at the incision sight. If severe pain develops you should contact your doctor for further instructions. ? URINATION: Patients who have surgery occasionally have problems urinating. If you experience problems and are not able to urinate within 6 hours following your surgery, please call your doctor immediately or go to your nearest Emergency Room for evaluation. ? DRIVING: NO driving for three (3) days after surgery, or if you are still taking narcotic pain medication.? ? MEDICATIONS: Alternate Tylenol 1000mg by mouth every 8 hours and Ibuprofen 600mg every 6 hours. ?Make sure you take ibuprofen with food and not on an empty stomach. ?Take the Tylenol and ibuprofen continuously for the first 72hrs- not just when you have pain.? Use the tramadol for breakthrough pain.? Use ICE!?? Twenty minutes on, and then off, continuously for the first 72hours. If you are taking narcotic pain medication, follow the instructions on the label and do not drive. Pain medications can make you very constipated. Make sure you are moving your bowels daily. If not, take Miralax, milk of magnesia or magnesium cit rate.?? Anesthesia makes you very constipated.? Take a dose of milk of magnesia the morning after surgery. ? REPORT: Unusual swelling, severe pain, unresolved nausea, signs of infection, or difficulty in urination to your surgeon. Follow up in clinic with Dr. Warren in 2 weeks.? [phone] ? ? Activity:: see above Remove Dressings/Wound Care:: 24 hours Shower/Bathe:: 24 hours Diet:: see above Discharge Orders Discharge Orders: Discharge Order (Routine); Ordered 05/07/21 Ordered By: Elif Warren
--- NOTE | 2021-05-07 14:38 | W.PM.OP ---
Date of service: 05/08/21 Time of Service: 09:37 Operative Note Operative Note DATE OF PROCEDURE: 05/08/21 PRE-OP DIAGNOSIS: left inguinal hernia POST-OP DIAGNOSIS: other (direct) SURGEON: Elif Lopes GENERAL SUPERVISOR: Carmen Lopez ANESTHESIA TYPE: General LMA/ETT and Primary Nerve Block Refer to Anesthesia Record ESTIMATED BLOOD LOSS: 3 PATHOLOGY: none sent COMPLICATIONS: None Patient was transported to: PACU Patient's condition: stable Implants: see RN notes Procedure Description: INDICATIONS: The pt is here today for surgery regarding symptomatic left inguinal hernia that has failed outpatient conservative medical management, and he is here today for repair. Informed consent was obtained, explaining risks and benefits of the procedure including but not limited to: bleeding, infection, pneumonia, blood clots, chronic pain, chronic numbness, damage to testicle resulting in removal, recurrence of hernia, reaction to Mesh necessitating removal, and other unforetold complications, and complications of anesthesia-which were addressed by the CREDIT CHARGE AUTHORIZER. The patient is marked in preOp prior to the procedure DESCRIPTION OF PROCEDURE:? The pt is then brought to the operative room suite. Anesthesia was administered per the Department of Anesthesia. The patient was prepped and draped in the usual sterile fashion using ChloraPrep scrub solution. Pause for the cause was done. He did receive preop IV antibiotics, and 30 mL of .25% Marcaine w/ epinephrine was used for local anesthetization. A #12 blade was used to make an incision over the external ring. Electrocautery used to provide hemostasis and dissect down to the fascia. The nerve was ligated and cuterized.? Electro-cautery is used to provide hemostasis. There is a medium sized direct hernia sac is pushing through the floor. The transversalis in this area is pretty much obliterated. The sac is elevated and scored and inverted. A medium size mesh plug was then placed into the defect and sewn into transversalis, using 2-0 vicryl. ?The patch was then placed on the floor, and sewn in using 2-0 Vicryl; onto the pubic tubercle, and the shelving portions of the inguinal ligament, in the standard Karl fashion. The tails of the mesh patch are brought around the cord and sewn together with 2-0 Vicryl, and tacked under the external oblique.? The wound was copiously irrigated. There was no bleeding noted. ?All structures are returned to normal anatomical position. The nerve is out of the way of the suturing and not caught w/ in any sutures or the mesh.? ?Deep tissue was approximated with 3-0 Vicryl and skin was approximated with 4-0 Monocryl in a running subcuticular fashion. Skin glue sterile dressings are applied. The patient tolerated the procedure without complications to recovery in stable condition. ELIF LOPES, DO ? ? ?
[2021-05-08] VITALS (7 sets, daily range): BP systolic 149–167; BP diastolic 52–97; PULSE 56–64; RESP 10–18; TEMP 36.1–36.4; O2SAT 96–97; BMI 28.0
[2021-05-08] MEDS: Acetaminophen 500 MG TAB 1000 MG PO (06:47)
[2021-05-08] MEDS: Gabapentin 300 MG CAP 600 MG PO (06:49)
--- NOTE | 2021-05-08 06:55 | W.ANESPRE ---
General Info Date of Service Date Performed: 05/08/21 Height: 5 ft Weight: 65.3 kg Body Mass Index (BMI): 28.0 Surgical Procedure: Operation Date: 05/08/21 07:40 Proposed Procedure Side Surgeon p Herniorrhaphy Inguinal LT w/Mesh Left Elif Warren DO Meds Allergies and Home Medications Allergies Allergy/AdvReac Type Severity Reaction Status Date / Time tree and shrub pollen Allergy Mild Verified 05/08/21 06:23 lisinopril AdvReac cough Verified 05/08/21 06:23 Home Medication Medication Instructions Recorded calcium carbonate 600 mg-vitamin 1 ea PO BID 06/06/12 D3 5 mcg (200 unit) tablet cetirizine 10 mg capsule (Zyrtec) 1 cap PO DAILY PRN #30 cap 06/06/12 acetaminophen 500 mg tablet 1,000 mg PO TID PRN PRN #90 tab 12/10/16 (Acetaminophen Extra Strength) aspirin 81 mg chewable tablet 81 mg PO DAILY 07/13/18 (Gabrielle Chewable Low Dose Aspirin) nitroglycerin 0.4 mg sublingual 0.4 mg SL Q5-15M PRN 07/13/18 tablet atorvastatin 80 mg tablet (Lipitor) 80 mg PO QHS #90 tab 05/22/20 carvedilol 25 mg tablet 25 mg PO BID #180 tab 07/10/20 levothyroxine 50 mcg tablet 50 mcg PO DAILY #30 tab 09/21/20 pantoprazole 20 mg tablet,delayed 20 mg PO DAILY #90 tab 11/14/20 release albuterol sulfate 90 mcg/actuation 2 puff INHALATION QID PRN #18 g 03/06/21 aerosol inhaler (Ventolin HFA) fluticasone propionate 230 2 puff INHALATION BID #8 g 03/06/21 mcg-salmeterol 21 mcg/actuation HFA inhaler (Advair HFA) losartan 100 mg tablet 100 mg PO HS 05/07/21 Current Visit Medications: Current Medications Generic Name Dose Route Start Last Admin Trade Name Freq PRN Reason Stop Dose Admin Acetaminophen 1,000 mg 05/08/21 06:00 05/08/21 06:47 Acetaminophen 500 Mg Tab PO 05/08/21 23:59 1,000 mg PREOP ALLYSON Administration Gabapentin 600 mg 05/08/21 06:00 05/08/21 06:49 Gabapentin 300 Mg Cap PO 05/08/21 23:59 600 mg PREOP ALLYSON Administration Ringer's Solution 1,000 mls @ 80 mls/hr 05/08/21 06:00 IV 05/31/21 23:59 INFUSION ALLYSON Cefazolin Sodium/Dextrose 2 gm in 50 mls @ 100 mls/hr 05/08/21 06:00 Ancef Duplex IVPB 05/08/21 23:59 PREOP ALLYSON Ondansetron HCl 4 mg/ Sodium 52 mls @ 200 mls/hr 05/07/21 14:37 Chloride IVPB Q6H PRN PRN IV Miscellaneous Supplies 1 each 05/08/21 06:00 Iv Access IV 05/31/21 23:59 DIRECTED ALLYSON Morphine Sulfate 2 mg 05/07/21 14:37 Morphine 4 Mg/Ml Syr IVP Q1H PRN PRN Sodium Chloride 0 ml 05/08/21 06:00 Normal Saline Flush 10 Ml Syr IV 05/31/21 23:59 PRN PRN Sodium Chloride 0 ml 05/08/21 06:00 Normal Saline 10 Ml Vial IJ 05/31/21 23:59 DIRECTED PRN Sterile Water 0 ml 05/08/21 06:00 Water,Injection,Sterile 10 Ml Vial IJ 05/31/21 23:59 DIRECTED PRN Tramadol HCl 50 mg 05/07/21 14:37 Tramadol 50 Mg Tab PO Q6H PRN PRN Pain PFSH Active Problems Active Problems: Problem Status Onset Code Mild exercise-induced asthma J45.990 Hernia, inguinal, left K40.90 Hyperlipidemia E78.5 Subsequent non-ST elevation (NSTEMI) myocardial infarction within 4 weeks of initial infarction I22.2 Tinnitus, bilateral 11/28/16 H93.13 Sensorineural hearing loss (SNHL) of both ears 07/17/16 H90.3 Sciatica 09/16/12 M54.30 Osteopenia M85.80 Kyphosis (acquired) (postural) 08/12/17 M40.00 Hypothyroidism E03.9 Headache R51 Essential hypertension 06/14/13 I10 Chronic cough 07/12/15 R05 Back pain without radiation 07/12/15 M54.9 Allergic rhinitis with postnasal drip 06/30/17 J30.9, R09.82 Acute lateral meniscus tear of left knee 12/23/16 S83.282A Medical History Medical History Advanced directive placed in chart this admission Back pain Chest pain of unknown etiology Closed fracture of lower leg (01/30/01) Dyspnea Dyspnea PFT's normal Essential hypertension Fracture of patella, right, closed Hypothyroidism Internal derangement of left knee (09/30/16) Shoulder pain (06/08/12) SNHL (sensorineural hearing loss) Toxoplasmosis Medical History Comments:: Pt. has chronic cough at baseline Surgical History Surgical History BROKEN TIBIA (~2000) Colonoscopy - IV Sedation (11/19/16) Status post trigger finger release Trigger release right middle finger DOS: 05/07/18 Tobacco Smoking/Tobacco Use Status: Never Passive smoking exposure: Yes Second hand exposure: Yes Alcohol Alcohol Intake: current Alcohol intake frequency: a few times a week Alcohol type: wine Substance Use Substance use: Never Substance use type: does not use Counseling provided: none Vital Signs and Lab Results Vital Signs Most Recent Vital Signs in EMR: Most Recent Vital Signs Temp Pulse Resp BP Pulse Ox 36.1 C L 64 16 157/97 H 96 05/08/21 06:35 05/08/21 06:35 05/08/21 06:35 05/08/21 06:35 05/08/21 06:35 Lab Results Blood Type / Crossmatch: No Data to Display Complete Blood Count: No Data to Display Complete Metabolic Panel: No Data to Display Liver Function Panel: No Data to Display Coagulation Panel: No Data to Display Cardiac Panel: No Data to Display Arterial Blood Gas: No Data to Display Venous Blood Gas: No Data to Display Pancreas Panel: No Data to Display Thyroid Panel: No Data to Display Infectious Disease: Coronavirus (COVID-19)(PCR) Negative (Negative) 05/07/21 09:43 05/07/21 Coronavirus 2019 Source Nasal/Nares 05/07/21 09:43 05/07/21 Blood Cultures: No Data to Display Toxicology Panel: No Data to Display Anesthesia Assessment and Plan Anesthesia History Personal History: No History of Anesthesia Complications Family History: No Family History of Anesthesia Complications Exercise Tolerance Exercise Tolerance: Metabolic Equivalents>4 Pertinent Negatives Pertinent Negatives: No Symptoms of GERD and No History of CVA/TIA Cardiac & Pulmonary Exam Cardiac Exam: Normal S1/S2 Heart Sounds Pulmonary Exam: Clear Bilateral Breath Sounds Implantable Cardiac Device Does patient have a Pacemaker or an ICD?: No Airway Exam Known Difficult Airway: No Mallampati Class: 2 Mouth Opening: Normal (> 3cm) Thyromental Distance: Greater than 3 cm Neck Range of Motion: Full ROM Neck Circumference: Normal Teeth Condition: Normal Dentition ASA Classification ASA Score: ASA 3 Emergency Case?: No NPO Status NPO Status: NPO Clears >2 hours, Solids >8 hours Anesthesia Plan Resuscitation Status: Full Code Anesthesia Technique: General Anesthesia Airway Planned: LMA Pain Management: Surgeon and patient request nerve block Monitors Used: Standard Monitors
[2021-05-08] MEDS: Lactated Ringers 1,000 ML 80 ML IV (07:05)
[2021-05-08] MEDS: ceFAZolin 2 GM/50 ML BAG IVPB (07:32)
--- NOTE | 2021-05-08 07:53 | W.ANESNERVE ---
Nerve Block Single Injection Procedure Date and Time Date Performed: 05/08/21 Procedure Start: 07:33 Location Where Procedure Performed Procedure Location: Operating Room Procedure Stop: 07:40 Reason Performed: Postoperative Analgesia Requesting Provider: Elif Warren Timeout Performed Timeout Performed: Yes Monitoring Used ECG, Blood Pressure, SpO2 and ETCO2 Sterility Sterility: Hand Hygiene, Surgical Cap, Surgical Mask, Sterile Gloves, Eye Protection and Chlorhexidine Sedation Given During Procedure Sedation Given (Indicate Dose Given): No Sedation given Patient Mental Status Patient Mental Status: Performed under general anesthesia Nerve Block 1st Nerve Block: Laterality: Left Block Type: TAP Unilateral Needle / Catheter Used: 100mm SonoPlex II Local Anesthetic Bolus (Indicate Dose Given): Injected in 3-5ml increments after negative blood aspiration, Bupivacaine 0.5% Dose:: 10 ml and Exparel Dose:: 10 ml Additives (Indicate Dose Given): None Ultrasound: Sterile probe cover and gel used Ultrasound Image Saved?: Yes Nerve Stimulator: Not Used Paresthesia: None Procedure Tolerated: No Complications and Patient tolerated well Procedure Outcome: Successful Performed By: Robert Christensen
[2021-05-08] MEDS: Bupivacaine LIPOSOME/PF 133 MG/10 ML VIAL IJ (08:12)
[2021-05-08] MEDS: Bupivacaine 0.25% Pres-Free 30 ML VIAL (08:12)
--- NOTE | 2021-05-08 09:21 | W.ANESPOSTOP ---
Postoperative Evaluation Date, Time and Location Date Performed: 05/08/21 Time Performed: 09:26 Patient Location: Day Surgery Unit Vital Signs Most Recent Imported Vital Signs: Most Recent Vital Signs Temp Pulse Resp BP Pulse Ox 36.4 C L 62 13 159/67 H 97 05/08/21 09:12 05/08/21 09:12 05/08/21 09:12 05/08/21 09:12 05/08/21 09:12 Pain Score Most Recent Pain Score: Most Recent Pain Score Pain Level 0 05/08/21 09:12 Assessment Mental Status: Awake (Alert & Oriented to Patient Baseline) Airway and Respiratory Function: Patent airway with normal (patient baseline) respiratory exam Cardiovascular Function: Hemodynamically Stable Hydration Status: Adequately Hydrated Nausea & Vomiting: No Nausea or Vomiting Pain: Pt. Denies Any Pain Peripheral Nerve Block: Regional nerve block not resolved at time of post operative discharge Postoperative Comments:: Patient reports 0/10 pain. No nausea. Denies questions for anesthesia. Patient cleared for home
== END 2021-05-08 10:08 | disposition home or self-care (01) ==
LOC: SUR 06:08
PROVIDERS: Visit Provider Surgery
PROC: (CPT 49505; principal; 2021-05-08 07:30)
DX: K40.90 Unilateral inguinal hernia, without obstruction or gangrene, not specified as recurrent (principal); E78.5 Hyperlipidemia, unspecified; I10 Essential (primary) hypertension; G89.18 Other acute postprocedural pain
CPT/HCPCS: 49505; 76942; C1781; J0690; J1100; J2370; J2405; J2704

== ENCOUNTER → 2021-05-24 10:21 | Outpatient (BNVA) | payer MEDICARE, OTHER, SELFPAY | PROVIDERS: Visit Provider Surgery | DX: Z48.815 Encounter for surgical aftercare following surgery on the digestive system (principal); Z87.19 Personal history of other diseases of the digestive system ==

== ENCOUNTER → 2021-11-23 11:10 | Outpatient (BNVA) | payer MEDICARE, OTHER, SELFPAY | PROVIDERS: Visit Provider Internal Medicine Cardiovascular Disease | DX: I25.2 Old myocardial infarction (principal); Z95.5 Presence of coronary angioplasty implant and graft; I10 Essential (primary) hypertension; I25.10 Atherosclerotic heart disease of native coronary artery without angina pectoris | CPT/HCPCS: 99213 ==

== ENCOUNTER 2021-12-28 01:40 | Outpatient (CLI) | payer MEDICARE, SELFPAY ==
[2021-12-28 13:14] LABS: ALT 28 U/L (14-59); AST 36 U/L (15-37); Albumin 3.8 g/dL (3.4-5.0); Alkaline Phosphatase 77 U/L (46-116); Anion Gap 5.7 mmol/L (3-11); BUN 12 mg/dL (7-18); Bilirubin, Total 0.6 mg/dL (0.2-1.0); CO2 29.3 mmol/L (21.0-32.0); CREATININE 0.7 mg/dL (0.55-1.02); Calcium 9.1 mg/dL (8.5-10.1); Calculated LDL 60 mg/dL (<100); Chloride 101 mmol/L (98-107); Cholesterol 146 mg/dL (<200); Estimated GFR 87.37 (mL/min/1.73m2); Glucose 87 mg/dL (74-106); HDL Cholesterol 78 mg/dL (40-60); Potassium 4.1 mmol/L (3.5-5.1); Sodium 136 mmol/L (136-145); TSH (W/Ref FT4) 2.32 uIU/mL (0.36-3.74); Total Protein 7.4 g/dL (6.4-8.2); Triglyceride 43 mg/dL (<150)
== END 2021-12-28 01:41 | disposition home or self-care (01) ==
LOC: LOS 01:40
PROVIDERS: Emergency Medicine
DX: I10 Essential (primary) hypertension (principal); E78.5 Hyperlipidemia, unspecified; E03.9 Hypothyroidism, unspecified
CPT/HCPCS: 36415; 80053; 80061; 84443

== ENCOUNTER 2022-01-18 07:24 | Day surgery (SDC) | payer MEDICARE, SELFPAY ==
[2022-01-18] MEDS: Tropicam./Phenyleph. (1/2.5%) 5 ML BTL OS ×3 (07:57→08:09)
[2022-01-18 07:59] VITALS: BP 147/77; PULSE 71; RESP 16; TEMP 36.2; O2SAT 100
--- NOTE | 2022-01-18 08:11 | W.ANESPRE ---
General Info Date of Service Date Performed: 01/18/22 Height: 5 ft Weight: 63.9 kg Body Mass Index (BMI): 27.5 Surgical Procedure: Operation Date: 01/18/22 09:40 Proposed Procedure Side Surgeon p Cataract Extraction with IOL Implant Left Aron Becker MD Meds Allergies and Home Medications Allergies Allergy/AdvReac Type Severity Reaction Status Date / Time tree and shrub pollen Allergy Mild Verified 01/18/22 07:52 lisinopril AdvReac cough Verified 01/18/22 07:52 Home Medication Medication Instructions Recorded calcium carbonate 600 mg-vitamin 1 ea PO BID 06/06/12 D3 5 mcg (200 unit) tablet cetirizine 10 mg capsule (Zyrtec) 1 cap PO DAILY PRN #30 caps 06/06/12 acetaminophen 500 mg tablet 1,000 mg PO TID PRN PRN #90 tabs 12/10/16 (Acetaminophen Extra Strength) aspirin 81 mg chewable tablet 81 mg PO DAILY 07/13/18 (Gabrielle Chewable Low Dose Aspirin) nitroglycerin 0.4 mg sublingual 0.4 mg sublingual Q5-15M PRN 07/13/18 tablet albuterol sulfate 90 mcg/actuation 2 puff inhalation QID PRN 03/06/21 aerosol inhaler (Ventolin HFA) shortness of breath or wheezing #18 grams fluticasone propionate 230 2 puff inhalation BID #24 grams 06/19/21 mcg-salmeterol 21 mcg/actuation HFA inhaler (Advair HFA) atorvastatin 80 mg tablet (Lipitor) 80 mg PO QHS #90 tabs 09/06/21 levothyroxine 50 mcg tablet 50 mcg PO DAILY #30 tabs 09/26/21 carvedilol 25 mg tablet 25 mg PO HS 11/23/21 amlodipine 5 mg tablet 5 mg PO DAILY #90 tabs 12/21/21 losartan 100 mg tablet 100 mg PO HS #90 tabs 12/21/21 pantoprazole 20 mg tablet,delayed 20 mg PO DAILY #90 tabs 01/14/22 release Current Visit Medications: Current Medications Generic Name Dose Route Start Last Admin Trade Name Freq PRN Reason Stop Dose Admin Acetaminophen 1,000 mg 01/18/22 06:00 Acetaminophen 500 Mg Tab PO Q4H PRN PRN Miscellaneous Medication 0 ml 01/18/22 06:00 Prednisolone 1%, Moxifloxacin 0.5%, Nepafenac 0.1% 5ml Btl OS DIRECTED ALLYSON Miscellaneous Medication 0 ml 01/18/22 06:00 01/18/22 08:09 Tropicam./Phenyleph. (1/2.5%) 5 Ml Btl OS 1 drp DIRECTED ALLYSON Administration Tetracaine HCl 0 ml 01/18/22 06:00 Tetracaine 0.5% 4 Ml Btl OS DIRECTED ALLYSON PFSH Active Problems Active Problems: Problem Status Onset Code Cortical cataract of left eye H26.9 Nuclear sclerotic cataract of left eye H25.12 Coronary artery disease I25.10 S/P bilateral inguinal hernia repair Z98.890, Z87.19 Mild exercise-induced asthma J45.990 Hyperlipidemia E78.5 Subsequent non-ST elevation (NSTEMI) myocardial infarction within 4 weeks of initial infarction I22.2 Tinnitus, bilateral 11/28/16 H93.13 Sensorineural hearing loss (SNHL) of both ears 07/17/16 H90.3 Sciatica 09/16/12 M54.30 Osteopenia M85.80 Kyphosis (acquired) (postural) 08/12/17 M40.00 Hypothyroidism E03.9 Headache R51 Essential hypertension 06/14/13 I10 Chronic cough 07/12/15 R05 Back pain without radiation 07/12/15 M54.9 Allergic rhinitis with postnasal drip 06/30/17 J30.9, R09.82 Acute lateral meniscus tear of left knee 12/23/16 S83.282A Medical History Medical History Advanced directive placed in chart this admission Back pain Chest pain of unknown etiology Closed fracture of lower leg (01/30/01) Dyspnea Dyspnea PFT's normal Essential hypertension Fracture of patella, right, closed Hypothyroidism Internal derangement of left knee (09/30/16) Shoulder pain (06/08/12) SNHL (sensorineural hearing loss) Toxoplasmosis Medical History Comments:: Pt. has chronic cough at baseline Surgical History Surgical History BROKEN TIBIA (~2000) Colonoscopy - IV Sedation (11/19/16) History of left inguinal hernia repair (~05/08/21) Status post trigger finger release Trigger release right middle finger DOS: 05/07/18 Tobacco Smoking/Tobacco Use Status: Never Passive smoking exposure: Yes Second hand exposure: Yes Alcohol Alcohol Intake: current Alcohol intake frequency: a few times a week Alcohol type: wine Substance Use Substance use: Never Substance use type: does not use Counseling provided: none Vital Signs and Lab Results Vital Signs Most Recent Vital Signs in EMR: Most Recent Vital Signs Temp Pulse Resp BP Pulse Ox 36.2 C L 71 16 147/77 H 100 01/18/22 07:59 01/18/22 07:59 01/18/22 07:59 01/18/22 07:59 01/18/22 07:59 Lab Results Blood Type / Crossmatch: No Data to Display Complete Blood Count: No Data to Display Complete Metabolic Panel: Sodium 136 mmol/L (136-145) 12/28/21 08:59 Potassium 4.1 mmol/L (3.5-5.1) 12/28/21 08:59 Chloride 101 mmol/L (98-107) 12/28/21 08:59 Carbon Dioxide 29.3 mmol/L (21.0-32.0) 12/28/21 08:59 BUN 12 mg/dL (7-18) 12/28/21 08:59 Creatinine 0.7 mg/dL (0.55-1.02) 12/28/21 08:59 Est GFR (CKD-EPI 2020) 87.37 (mL/min/1.73m2) 12/28/21 08:59 Calcium 9.1 mg/dL (8.5-10.1) 12/28/21 08:59 Albumin 3.8 g/dL (3.4-5.0) 12/28/21 08:59 Glucose 87 mg/dL (74-106) 12/28/21 08:59 Liver Function Panel: Alanine Aminotransferase (ALT/SGPT) 28 U/L (14-59) 12/28/21 08:59 Aspartate Amino Transf (AST/SGOT) 36 U/L (15-37) 12/28/21 08:59 Coagulation Panel: No Data to Display Cardiac Panel: No Data to Display Arterial Blood Gas: No Data to Display Venous Blood Gas: No Data to Display Pancreas Panel: No Data to Display Thyroid Panel: Thyroid Stimulating Hormone (TSH) 2.32 uIU/mL (0.36-3.74) 12/28/21 08:59 Infectious Disease: No Data to Display Blood Cultures: No Data to Display Toxicology Panel: No Data to Display Anesthesia Assessment and Plan Anesthesia History Personal History: No History of Anesthesia Complications Family History: No Family History of Anesthesia Complications Exercise Tolerance Exercise Tolerance: Metabolic Equivalents>4 Pertinent Negatives Pertinent Negatives: No Symptoms of GERD Cardiac & Pulmonary Exam Cardiac Exam: Normal S1/S2 Heart Sounds Pulmonary Exam: Clear Bilateral Breath Sounds Implantable Cardiac Device Does patient have a Pacemaker or an ICD?: No Airway Exam Known Difficult Airway: No Mallampati Class: 2 Mouth Opening: Normal (> 3cm) Thyromental Distance: Greater than 3 cm Neck Range of Motion: Full ROM Neck Circumference: Normal Teeth Condition: Normal Dentition ASA Classification ASA Score: ASA 3 Emergency Case?: No NPO Status NPO Status: NPO Clears >2 hours, Solids >8 hours Anesthesia Plan Resuscitation Status: Full Code Anesthesia Technique: MAC Anesthesia Airway Planned: Natural Airway Monitors Used: Standard Monitors Preoperative Comments:: Feels will be fine without MKO after discussion.
[2022-01-18 08:13] VITALS: BMI 27.5
[2022-01-18] MEDS: Tetracaine 0.5% 4 ML BTL OS (09:01)
[2022-01-18] MEDS: Balanced Salt Soln.-PLUS 500 ML BAG (09:01)
[2022-01-18] MEDS: Duovisc Viscoelastic System EACH 1 EACH (09:02)
[2022-01-18] MEDS: Lidocaine 2% Jelly 6 ML SYR (09:03)
[2022-01-18] MEDS: Povidone-Iodine Ophth 30 ML BTL (09:04)
--- NOTE | 2022-01-18 09:18 | PDOC.DSDIS_ITS ---
Date of service: 01/18/22 Time of Service: 09:18 Discharge Plan Disposition Patient Disposition: HOME Condition: Good Discharge Details Attending Provider: Aron Becker Primary Care Provider: Jenna Sneed Home Meds and New Rx's Prescriptions: No Action aspirin [Gabrielle Chewable Aspirin] 81 mg tablet,chewable 81 mg PO DAILY Label Comments: Per [facility] [place] nitroglycerin 0.4 mg tablet, sublingual 0.4 mg SL Q5-15M PRN albuterol sulfate [Ventolin HFA] 90 mcg/actuation HFA aerosol inhaler 2 puff inhalation QID PRN (Reason: shortness of breath or wheezing) Qty: 18 4RF amlodipine 5 mg tablet 5 mg PO DAILY Qty: 90 3RF losartan 100 mg tablet 100 mg PO HS Qty: 90 3RF carvedilol 25 mg tablet 25 mg PO HS Rx Instructions: must administer with a meal/food Advair HFA 230-21 mcg/actuation HFA aerosol inhaler 2 puff inhalation BID Qty: 24 11RF Rx Instructions: administer with spacer calcium carbonate-vitamin D3 1 EACH tablet 1 ea PO BID Zyrtec 10 MG capsule 1 cap PO DAILY PRN Qty: 30 atorvastatin [Lipitor] 80 mg tablet 80 mg PO QHS Qty: 90 5RF levothyroxine 50 mcg tablet 50 mcg PO DAILY Qty: 30 12RF pantoprazole 20 mg tablet,delayed release (DR/EC) 20 mg PO DAILY Qty: 90 6RF acetaminophen [Acetaminophen Extra Strength] 500 MG tablet 1,000 mg PO TID PRN PRNQty: 90 0RF Discharge Instructions Stand Alone Forms: Post-op Topical Cataract, Kristel Mitchell (DSU) DS: Diagnosis Discharge Diagnosis (1) Cortical cataract of left eye: Status: Resolved (2) Nuclear sclerotic cataract of left eye: Status: Resolved
[2022-01-18 09:19] VITALS: BP 143/66; PULSE 67; RESP 16; TEMP 36.2; O2SAT 100
--- NOTE | 2022-01-18 09:19 | W.PM.OP ---
Date of service: 01/18/22 Time of Service: 09:19 Operative Note Operative Note DATE OF PROCEDURE: 01/18/22 PRE-OP DIAGNOSIS: Nuclear/cortical cataract, left eye POST-OP DIAGNOSIS: same PROCEDURE: Cataract extraction using phacoemulsification with intraocular lens implant, left eye SURGEON: Aron Becker ANESTHESIA TYPE: Local By Surgeon and MAC Refer to Anesthesia Record PATHOLOGY: none sent COMPLICATIONS: None Patient was transported to: same day Patient's condition: stable Implants: Sumit and Sumit / [employer] Tecnis [id number] Indications: Progressive decreased vision due to cataract, left eye Procedure Description: CATARACT SURGERY OPERATIVE REPORT PREOPERATIVE DIAGNOSIS: 1. Nuclear/cortical cataract, POSTOPERATIVE DIAGNOSIS: Same OPERATION: 1. Cataract extraction using phacoemulsification with posterior chamber intraocular lens implant, left eye. IOL: IOL Hand Therapist/Model: Sumit & Sumit / STAN Tecnis [id number] IOL Power: + 15.5 diopters IOL Serial Number: [id number] Optic Diameter: 6.0 mm Haptic/Overall Diameter: 13.0 mm PHACO INFO: [employer]on Vision System with OZil and Active Fluidics Cumulative Dispersed Energy (CDE): 13.3 seconds SURGEON: Aron Becker MD, KIRSTEN ANESTHESIA: Monitored A [facility] (MAC), with local sub-tenon's anesthetic infiltration COMPLICATIONS: None SPECIMENS: None INDICATIONS FOR PROCEDURE: The patient is an 81-year-old lady with history of diminished visual acuity in her left eye secondary to the development of nuclear/cortical cataract. She is significantly symptomatic that she desires cataract surgery attempt to improve and maximize her vision. The option of cataract surgery was offered to the patient and she wished to proceed. PROCEDURE: The correct surgical eye was identified and marked as the left eye and the pupil was dilated in the preoperative area using mydriatics and cycloplegics. The dilated pupil size was 7.0 mm. The patient elected to proceed without oral sedation. The patient was brought to the operating room where cardiopulmonary monitoring was instituted and surgical time-out was performed, confirming the correct operative eye and IOL power. Topical anesthesia was administered and ophthalmic povidone-iodine 5% was instilled into the conjunctival fornices. Lidocaine gel was applied to the cornea and the geoff-ocular area was prepped with Betadine 10% solution and draped in the usual sterile fashion for intraocular surgery, including an aperture drape. A Tegaderm transparent film dressing was cut in half and used to cover the lashes and lid margins. Care was taken to sequester the lashes and lid margins under the Tegaderm dressing. A lid speculum was placed between the lids of the operative eye and the Jak Lux[employer] Revalia operating microscope was maneuvered into position. Liliya scissors were then used to make a conjunctival buttonhole approximately 6mm posterior to the limbus in the inferonasal quadrant. Blunt dissection was carried out to expose bare sclera, and a blunt-tipped sub-tenon?s anesthesia cannula was introduced and passed posteriorly along the globe where non-preserved plain lidocaine was injected into posterior sub-Tenon?s space. A sideport knife was used to make a paracentesis port superiorly/superiortemporally. Intraocular phenylephrine/lidocaine was injected int the anterior chamber.. The anterior chamber was filled with viscoelastic. A keratome knife was used to construct a 2-plane near-clear corneal tunnel extending 2.0mm into clear cornea temporally. A flap was raised on the anterior capsule and capsulorhexis forceps were used to complete a continuous curvilinear capsulorhexis of 5.0 mm. Balanced salt solution was then used to perform cortical cleaving hydrodissection and nuclear hydrodelineation until the lens could be freely rotated within the capsular bag. The lens nucleus was then disassembled and removed within the capsular bag and iris plane using phacoemulsification. Residual cortical material was removed using the 45-degree angled silicone I/A tip with 0.3mm port. The posterior capsule was carefully polished to remove as much residual lens epithelial cells as safely possible. The capsular bag was then inflated and the anterior chamber deepened with viscoelastic. The lens implant described above was inserted into the capsular bag using the STAN Lime Injector. A Kuglen hook was used to dial the IOL into position. Residual viscoelastic was then removed first from posterior to the IOL, then from the anterior chamber using the I/A handpiece. The lens implant was noted to center nicely within the capsular bag. The incisions were stromally hydrated, and the anterior chamber was reformed using BSS. Then 0.5cc of moxifloxacin 1.0mg/ml were injected into the capsular bag and anterior chamber. The incisions were checked with a Weck spear and found to be secure. Several drops of ophthalmic povidone-iodine 5% were then applied to the eye followed by two drops of Imprimis combination prednisolone/moxifloxacin/nepafenac solution. The drapes were removed and a clear plastic protective eye shield was placed over the eye. The patient was then returned to Same Day Surgery in stable condition.
--- NOTE | 2022-01-18 09:28 | W.ANESPOSTOP ---
Postoperative Evaluation Date, Time and Location Date Performed: 01/18/22 Time Performed: :28 Patient Location: Day Surgery Unit Vital Signs Most Recent Imported Vital Signs: Most Recent Vital Signs Temp Pulse Resp BP Pulse Ox 36.2 C L 67 16 143/66 H 100 01/18/22 09:19 01/18/22 09:19 01/18/22 09:19 01/18/22 09:19 01/18/22 09:19 Pain Score Most Recent Pain Score: Most Recent Pain Score Pain Level 0 01/18/22 09:19 Assessment Mental Status: Awake (Alert & Oriented to Patient Baseline) Airway and Respiratory Function: Patent airway with normal (patient baseline) respiratory exam Cardiovascular Function: Hemodynamically Stable Hydration Status: Adequately Hydrated Nausea & Vomiting: No Nausea or Vomiting Pain: Pt. Denies Any Pain Peripheral Nerve Block: Patient did not receive a nerve block
== END 2022-01-18 09:40 | disposition home or self-care (01) ==
LOC: SUR 07:25
PROVIDERS: PCP Nurse Practitioner Family; Visit Provider Ophthalmology
PROC: (CPT 66984; principal; 2022-01-18 09:30)
DX: H25.12 Age-related nuclear cataract, left eye (principal)
CPT/HCPCS: 66984; V2632

== ENCOUNTER 2022-11-25 09:59 | Outpatient (CLI) | payer MEDICARE, SELFPAY ==
--- NOTE | 2022-11-25 09:45 | RT.EKG_ITS ---
APPROVED REPORT Exam: Resting ECG Reason for Exam: CAD Patient Location: O HR:69 bpm ECG Measurements Heart Rate 69 AXIS NC 151 P 0 QRSd 84 QRS -12 QT 386 T 33 QTc 414 Conclusion Sinus rhythm...normal P axis, V-rate 50- 99 Left ventricular hypertrophy...multiple voltage criteria
== END 2022-11-25 10:00 | disposition home or self-care (01) ==
LOC: DI.CARD 10:01
PROVIDERS: PCP Nurse Practitioner Family; Visit Provider Internal Medicine Cardiovascular Disease
DX: I25.10 Atherosclerotic heart disease of native coronary artery without angina pectoris (principal)
CPT/HCPCS: 93010

== ENCOUNTER → 2022-11-25 10:33 | Outpatient (BNVA) | payer MEDICARE, SELFPAY | PROVIDERS: PCP Nurse Practitioner Family; Referring Provider Nurse Practitioner Family; Visit Provider Internal Medicine Cardiovascular Disease | DX: K21.9 Gastro-esophageal reflux disease without esophagitis (principal); I10 Essential (primary) hypertension; I25.10 Atherosclerotic heart disease of native coronary artery without angina pectoris | CPT/HCPCS: 93005; 99213 ==

== ENCOUNTER 2023-03-14 04:14 | Outpatient (CLI) | payer MEDICARE, SELFPAY ==
[2023-03-14 12:49] LABS: HCT 36.8 % (36.0-46.0); HGB 11.9 g/dL (11.2-15.7); MCH 31.4 pg (27.0-33.0); MCHC 32.3 % (32.0-36.0); MCV 97 fL (80-95); MPV 9.2 fL (8.0-11.0); Platelet Count 222 10^3/uL (130-400); RBC 3.79 10^6/uL (3.93-5.22); RDW 13.2 % (11.7-14.6); WBC 4.74 10^3/uL (4.4-10.8)
[2023-03-14 13:15] LABS: ALT 27 U/L (14-59); AST 20 U/L (15-37); Albumin 3.5 g/dL (3.4-5.0); Alkaline Phosphatase 73 U/L (46-116); Anion Gap 6.7 mmol/L (3-11); BUN 10 mg/dL (7-18); Bilirubin, Total 0.5 mg/dL (0.2-1.0); CO2 28.3 mmol/L (21.0-32.0); CREATININE 0.7 mg/dL (0.55-1.02); Calcium 8.9 mg/dL (8.5-10.1); Calculated LDL 59 mg/dL (<100); Chloride 102 mmol/L (98-107); Cholesterol 140 mg/dL (<200); Estimated GFR 86.83 (mL/min/1.73m2); Glucose 95 mg/dL (74-106); HDL Cholesterol 71 mg/dL (40-60); Potassium 4.1 mmol/L (3.5-5.1); Sodium 137 mmol/L (136-145); TSH (W/Ref FT4) 2.72 uIU/mL (0.36-3.74); Triglyceride 53 mg/dL (<150)
== END 2023-03-14 04:15 | disposition home or self-care (01) ==
LOC: LOS 04:14
PROVIDERS: PCP Nurse Practitioner Family; Visit Provider Nurse Practitioner Family
DX: E78.5 Hyperlipidemia, unspecified (principal); E03.9 Hypothyroidism, unspecified
CPT/HCPCS: 36415; 80053; 80061; 85027; 84443

== ENCOUNTER → 2023-11-24 10:33 | Outpatient (BNVA) | payer MEDICARE, SELFPAY | PROVIDERS: PCP Nurse Practitioner Family; Referring Provider Nurse Practitioner Family; Visit Provider Internal Medicine Cardiovascular Disease | DX: I25.10 Atherosclerotic heart disease of native coronary artery without angina pectoris (principal) | CPT/HCPCS: 99213 ==

== ENCOUNTER 2023-12-26 11:07 | Day surgery (SDC) | payer MEDICARE, SELFPAY ==
[2023-12-26 11:20] VITALS: BP 140/72; PULSE 71; RESP 18; TEMP 36; O2SAT 99
--- NOTE | 2023-12-26 11:35 | W.ANESPRE ---
General Info Date of Service Date Performed: 12/26/23 Height: 5 ft Weight: 61.992 kg Body Mass Index (BMI): 26.6 Surgical Procedure: Operation Date: 12/26/23 13:40 Proposed Procedure Side Surgeon p Cataract Extraction with IOL Implant Right Aron Becker MD Meds Allergies and Home Medications Allergies Allergy/AdvReac Type Severity Reaction Status Date / Time tree and shrub pollen Allergy Mild Unknown Unverified 12/26/23 11:39 lisinopril AdvReac cough Verified 12/26/23 11:39 Home Medication ?Medication ?Instructions ?Recorded calcium 600 mg (as 1 ea PO BID 06/06/12 carbonate)-vitamin D3 5 mcg (200 unit) tablet cetirizine 10 mg capsule (Zyrtec) 1 cap PO DAILY PRN #30 caps 06/06/12 acetaminophen 500 mg tablet 1,000 mg (2 x 500 mg) PO TID PRN 12/10/16 (Acetaminophen Extra Strength) PRN #90 tabs aspirin 81 mg chewable tablet 81 mg PO DAILY 07/13/18 (Gabrielle Chewable Low Dose Aspirin) albuterol sulfate 90 mcg/actuation 2 puff inhalation QID PRN 03/06/21 aerosol inhaler (Ventolin HFA) shortness of breath or wheezing #18 grams nitroglycerin 0.4 mg sublingual 0.4 mg sublingual Q5-15M PRN chest 03/06/22 tablet pain #20 tabs losartan 100 mg tablet 100 mg PO HS #90 tabs 03/21/23 pantoprazole 20 mg tablet,delayed See Rx Instructions .Route 04/17/23 release .COMPLEX #90 tabs levothyroxine 50 mcg tablet 50 mcg PO DAILY #90 tabs 08/01/23 carvedilol 25 mg tablet See Rx Instructions .Route 10/09/23 .COMPLEX #180 tabs mometasone-formoterol HFA 50 mcg-5 2 puff inhalation Q12H #13 grams 10/15/23 mcg/actuation aerosol inhaler (Dulera) amlodipine 5 mg tablet See Rx Instructions .Route 12/09/23 .COMPLEX #90 tabs atorvastatin 80 mg tablet (Lipitor) 80 mg PO QHS #90 tabs 12/09/23 Current Visit Medications: Current Medications Generic Name Dose Route Start Last Admin Trade Name Freq PRN Reason Stop Dose Admin Acetaminophen 1,000 mg 12/26/23 06:00 Acetaminophen 500 Mg Tab PO 01/25/24 05:59 Q4H PRN PRN Balanced Salt Solution 500 ml 12/26/23 06:00 Balanced Salt Soln.-Plus 500 Ml Bag OP 01/25/24 05:59 DIRECTED [facility] Miscellaneous Medication 0 ml 12/26/23 06:00 Prednisolone 1%, Moxifloxacin 0.5%, Bromfenac 0.09% 5.6ml Btl OD 01/25/24 05:59 DIRECTED [facility] [place] Miscellaneous Medication 0 ml 12/26/23 06:00 Tropicam./Phenyleph. (1/2.5%) 5 Ml Btl OD 01/25/24 05:59 DIRECTED [facility] [place] Tetracaine HCl 0 ml 12/26/23 06:00 Tetracaine 0.5% 4 Ml Btl OD 01/25/24 05:59 DIRECTED [facility]YSON PFSH Active Problems Active Problems: Problem Status Onset Code Cortical age-related cataract, right eye Acute H25.011 Cataract, right Acute H26.9 Edema Acute R60.9 Hoarseness Acute R49.0 GERD (gastroesophageal reflux disease) Chronic K21.9 Cortical cataract of left eye Resolved H26.9 Nuclear sclerotic cataract of left eye Resolved H25.12 Coronary artery disease Chronic I25.10 S/P bilateral inguinal hernia repair Acute Z98.890, Z87.19 Mild exercise-induced asthma Acute J45.990 Hyperlipidemia Acute E78.5 Subsequent non-ST elevation (NSTEMI) myocardial infarction within 4 weeks of initial infarction Acute I22.2 Tinnitus, bilateral Acute 11/28/16 H93.13 Sensorineural hearing loss (SNHL) of both ears Acute 07/17/16 H90.3 Sciatica Acute 09/16/12 M54.30 Osteopenia Acute M85.80 Kyphosis (acquired) (postural) Acute 08/12/17 M40.00 Hypothyroidism Acute E03.9 Headache Acute R51 Essential hypertension Acute 06/14/13 I10 Chronic cough Acute 07/12/15 R05 Back pain without radiation Acute 07/12/15 M54.9 Allergic rhinitis with postnasal drip Acute 06/30/17 J30.9, R09.82 Medical History Medical History Non-STEMI (non-ST elevated myocardial infarction) (~2018) Advanced directive placed in chart this admission Closed fracture of lower leg (01/30/01) Shoulder pain (06/08/12) Toxoplasmosis Fracture of patella, right, closed Chest pain of unknown etiology Internal derangement of left knee (09/30/16) Dyspnea PFT's normal Acute lateral meniscus tear of left knee (12/23/16) SNHL (sensorineural hearing loss) Hypothyroidism Dyspnea Back pain Essential hypertension Medical History Comments:: Pt. has chronic dry cough at baseline Surgical History Surgical History History of coronary artery stent placement History of left inguinal hernia repair (~05/08/21) Status post trigger finger release Trigger release right middle finger DOS: 05/07/18 Colonoscopy - IV Sedation (11/19/16) BROKEN TIBIA (~2000) Tobacco Smoking/Tobacco Use Status: Never Passive smoking exposure: Yes Second hand exposure: Yes Alcohol Alcohol Intake: current Alcohol intake frequency: a few times a week Alcohol type: wine Substance Use Substance use: Never Substance use type: does not use Counseling provided: none Vital Signs and Lab Results Vital Signs Most Recent Vital Signs in EMR: Temp Pulse Resp BP Pulse Ox 36 C L 71 18 140/72 99 12/26/23 11:20 12/26/23 11:20 12/26/23 11:20 12/26/23 11:20 12/26/23 11:20 Lab Results Blood Type / Crossmatch: No Data to Display Complete Blood Count: No Data to Display Complete Metabolic Panel: No Data to Display Liver Function Panel: No Data to Display Coagulation Panel: No Data to Display Cardiac Panel: No Data to Display Arterial Blood Gas: No Data to Display Venous Blood Gas: No Data to Display Pancreas Panel: No Data to Display Thyroid Panel: No Data to Display Infectious Disease: No Data to Display Blood Cultures: No Data to Display Toxicology Panel: No Data to Display Imaging and Studies Imaging and Studies Study information below may be from another EMR and interpreted by another provider. Please see original notes in EMR for more complete details. EKG Summary: EKG PATIENT NAME: Annalisa Valencia UNIT #: [id number] ORDERING PROVIDER: Soumya Barry M.D. PRIMARY CARE PROVIDER: Familia Riggs DNP DATE/TIME OF SERVICE: 11/25/22 0938 : 1940 PERFORMING LOCATION: [email or web address] APPROVED REPORT Exam: Resting ECG Reason for Exam: CAD Patient Location: O HR:69 bpm ECG Measurements Heart Rate 69 AXIS VT 151 P 0 QRSd 84 QRS -12 QT 386 T33 QTc 414 Conclusion Sinus rhythm...normal P axis, V-rate 50- 99 Left ventricular hypertrophy...multiple voltage criteria <Electronically signed by SOUMYA BARRY MD in OV> E-Sign Date: 11/25/22 E-Sign Time: 1047 Anesthesia Assessment and Plan Anesthesia History Personal History: No History of Anesthesia Complications Family History: No Family History of Anesthesia Complications Exercise Tolerance Exercise Tolerance: Metabolic Equivalents>4 Pertinent Negatives Pertinent Negatives: No Symptoms of GERD Cardiac & Pulmonary Exam Cardiac Exam: Normal S1/S2 Heart Sounds Pulmonary Exam: Clear Bilateral Breath Sounds Implantable Cardiac Device Does patient have a Pacemaker or an ICD?: No Airway Exam Known Difficult Airway: No Mallampati Class: 2 Mouth Opening: Normal (> 3cm) Thyromental Distance: Greater than 3 cm Neck Range of Motion: Full ROM Neck Circumference: Normal Teeth Condition: Normal Dentition ASA Classification ASA Score: ASA 3 Emergency Case?: No NPO Status NPO Status: NPO Clears >2 hours, Solids >8 hours Anesthesia Plan Resuscitation Status: Full Code Anesthesia Technique: MAC Anesthesia Airway Planned: Natural Airway Monitors Used: Standard Monitors Preoperative Comments:: Feels will be fine without MKO after discussion today.
[2023-12-26] MEDS: Tropicam./Phenyleph. (1/2.5%) 5 ML BTL OD ×3 (11:47→11:56)
[2023-12-26] MEDS: Tetracaine 0.5% 4 ML BTL OD (13:33)
[2023-12-26 13:36] VITALS: BMI 26.6
[2023-12-26] MEDS: Duovisc Viscoelastic System EACH 1 EACH (13:44)
[2023-12-26] MEDS: Lidocaine 1% Pres-Free 5 ML VIAL (13:45)
[2023-12-26] MEDS: Povidone-Iodine Ophth 30 ML BTL (13:47)
[2023-12-26] MEDS: Prednisolone 1%, Moxifloxacin 0.5%, Bromfenac 0.09% 5.6ML BTL OD (13:47)
[2023-12-26] MEDS: Balanced Salt Soln.-PLUS 500 ML BAG OP (13:47)
[2023-12-26 13:59] VITALS: PULSE 80; RESP 18; TEMP 36.5; O2SAT 99
--- NOTE | 2023-12-26 14:00 | W.PM.DSUDISC ---
Date of service: 12/26/23 Time of Service: 14:01 Discharge Plan Disposition Patient Disposition: Home Discharge Details Attending Provider: Aron Becker Primary Care Provider: Familia Adam Home Meds and New Rx's Prescriptions: No Action aspirin [Gabrielle Chewable Aspirin] 81 mg tablet,chewable 81 mg PO DAILY Patient Comments: Per [facility] [place] albuterol sulfate [Ventolin HFA] 90 mcg/actuation HFA aerosol inhaler 2 puff inhalation QID PRN (Reason: shortness of breath or wheezing) Qty: 18 4RF nitroglycerin 0.4 mg tablet, sublingual 0.4 mg SL Q5-15M PRN (Reason: chest pain) Qty: 20 4RF amlodipine 5 mg tablet See Rx Instructions .ROUTE .COMPLEX Qty: 90 3RF Dose Instruction: TAKE ONE TABLET BY MOUTH EVERY DAY Rx Instructions: TAKE ONE TABLET BY MOUTH EVERY DAY atorvastatin [Lipitor] 80 mg tablet 80 mg PO QHS Qty: 90 5RF calcium carbonate-vitamin D3 1 EACH tablet 1 ea PO BID Zyrtec 10 MG capsule 1 cap PO DAILY PRN Qty: 30 losartan 100 mg tablet 100 mg PO HS Qty: 90 3RF pantoprazole 20 mg tablet,delayed release (DR/EC) See Rx Instructions .ROUTE .COMPLEX Qty: 90 6RF Dose Instruction: TAKE ONE TABLET BY MOUTH DAILY Rx Instructions: TAKE ONE TABLET BY MOUTH DAILY levothyroxine 50 mcg tablet 50 mcg PO DAILY Qty: 90 2RF carvedilol 25 mg tablet See Rx Instructions .ROUTE .COMPLEX Qty: 180 3RF Dose Instruction: TAKE ONE TABLET BY MOUTH TWICE A DAY MUST ADMINISTER WITH A MEAL/FOOD Rx Instructions: TAKE ONE TABLET BY MOUTH TWICE A DAY MUST ADMINISTER WITH A MEAL/FOOD Dulera 50-5 mcg/actuation HFA aerosol inhaler 2 puff inhalation Q12H Qty: 13 12RF acetaminophen [Acetaminophen Extra Strength] 500 MG tablet 1,000 mg PO TID PRN PRNQty: 90 0RF Discharge Instructions Stand Alone Forms: DSU Post-Op CataractKristel (DSU) Discharge Orders Discharge Orders: Discharge Order (Routine); Ordered 12/26/23 Ordered By: Aron Becker DS: Diagnosis Discharge Diagnosis (1) Cortical age-related cataract, right eye: Status: Resolved
--- NOTE | 2023-12-26 14:01 | ROE_ITS ---
Date of service: 12/26/23 Time of Service: 14:01 Operative Note Operative Note DATE OF PROCEDURE: 12/26/23 PRE-OP DIAGNOSIS: Nuclear/cortical cataract, right eye POST-OP DIAGNOSIS: same PROCEDURE: Cataract extraction using phacoemulsification with intraocular lens implant, right eye SURGEON: Aron Becker ANESTHESIA TYPE: Local By Surgeon and MAC Refer to Anesthesia Record ESTIMATED BLOOD LOSS: 0 PATHOLOGY: none sent COMPLICATIONS: None Patient was transported to: same day Patient's condition: stable Implants: Jak Clareon [id number] Indications: Progressive decreased vision due to cataract, right eye Procedure Description: CATARACT SURGERY OPERATIVE REPORT PREOPERATIVE DIAGNOSIS: Nuclear/cortical cataract, right eye POSTOPERATIVE DIAGNOSIS: Same OPERATION: Cataract extraction using phacoemulsification with posterior chamber intraocular lens implant, right eye. IOL: IOL Director Of Casework Department/Model: Jak Clareon [id number] IOL Power: + 15.5 diopters IOL Serial Number: [id number] Optic Diameter: 6.0mm Haptic/Overall Diameter: 13.0mm PHACO INFO: JakSkuServeurion Vision System with OZil and Active Fluidics Cumulative Dispersed Energy (CDE): 5.09 seconds SURGEON: Aron Becker MD, KIRSTEN ANESTHESIA: Monitored Anesthesia Care (MAC), with local sub-tenon's anesthetic infiltration COMPLICATIONS: None SPECIMENS: None INDICATIONS FOR PROCEDURE: The patient is a 83-year-old lady with history of diminished visual acuity in her right eye secondary to the development of nuclear/cortical cataract. She has previously undergone cataract surgery in the left eye and is doing well postoperatively. She now presents for cataract surgery in the right eye. See office notes for detailed information. PROCEDURE: The correct surgical eye was identified and marked as the right eye and the pupil was dilated in the preoperative area using mydriatics and cycloplegics. The dilated pupil size was 6.0 mm. The patient elected to proceed without oral sedation. The patient was brought to the operating room where cardiopulmonary monitoring was instituted and surgical time-out was performed, confirming the correct operative eye and IOL power. Topical anesthesia was administered and ophthalmic povidone-iodine 5% was instilled into the conjunctival fornices. The geoff-ocular area was prepped with Betadine 10% solution and draped in the usual sterile fashion for intraocular surgery, including an aperture drape. A Tegaderm transparent film dressing was cut in half and used to cover the lashes and lid margins. Care was taken to sequester the lashes and lid margins under the Tegaderm dressing. A lid speculum was placed between the lids of the operative eye and the Jak LuxOR Revalia operating microscope was maneuvered into position. Liliya scissors were then used to make a conjunctival buttonhole approximately 6mm posterior to the limbus in the inferonasal quadrant. Blunt dissection was carried out to expose bare sclera, and a blunt-tipped sub-tenon?s anesthesia cannula was introduced and passed posteriorly along the globe where non- preserved plain lidocaine was injected into posterior sub-Tenon?s space. A sideport knife was used to make a paracentesis port. Intraocular phenylephrine/lidocaine was injected into the anterior chamber. The anterior chamber was then filled with viscoelastic. A keratome knife was used to construct a two--plane clear corneal tunnel extending 2.0mm into clear cornea. A flap was raised on the anterior capsule and capsulorhexis forceps were used to complete a continuous curvilinear capsulorhexis of 5.0 mm. Balanced salt solution was then used to perform cortical cleaving hydrodissection and nuclear hydrodelineation until the lens could be freely rotated within the capsular bag. The lens nucleus was then disassembled and removed within the capsular bag and iris plane using phacoemulsification. Residual cortical material was removed using the I/A handpiece. The posterior capsule was carefully polished to remove as much residual lens epithelial cells as safely possible. The capsular bag was then inflated and the anterior chamber deepened with cohesive viscoelastic. The lens implant described above was inserted into the capsular bag using the Jak Autonome Injector. A Kuglen hook was used to dial the IOL into position. Residual viscoelastic was then removed first from posterior to the IOL, then from the anterior chamber using the I/A handpiece. The lens implant was noted to center nicely within the capsular bag. The incisions were stromally hydrated, and the anterior chamber was reformed using BSS. Then 0.5cc of moxifloxacin 1.0mg/ml were injected into the capsular bag and anterior chamber. The incisions were checked with a Weck spear and found to be secure. Several drops of ophthalmic povidone-iodine 5% were then applied to the eye followed by two drops of combination steroid/NSAID/antibiotic solution. The drapes were removed and a clear plastic protective eye shield was placed over the eye. The patient was then returned to [facility] Day Surgery in stable condition.
--- NOTE | 2023-12-26 14:19 | W.ANESPOSTOP ---
Postoperative Evaluation Date, Time and Location Date Performed: 12/26/23 Time Performed: 14:19 Patient Location: Day Surgery Unit Vital Signs Most Recent Imported Vital Signs: Most Recent Vital Signs Temp Pulse Resp BP Pulse Ox 36.5 C 80 18 140/72 99 12/26/23 13:59 12/26/23 13:59 12/26/23 13:59 12/26/23 11:20 12/26/23 13:59 Assessment Mental Status: Awake (Alert & Oriented to Patient Baseline) Airway and Respiratory Function: Patent airway with normal (patient baseline) respiratory exam Cardiovascular Function: Hemodynamically Stable Hydration Status: Adequately Hydrated Nausea & Vomiting: No Nausea or Vomiting Pain: Pt. Denies Any Pain Peripheral Nerve Block: Other (Local by Dr. Becker)
== END 2023-12-26 14:19 | disposition home or self-care (01) ==
LOC: SUR 11:07
PROVIDERS: PCP Nurse Practitioner Family; Visit Provider Ophthalmology
PROC: (CPT 66984; principal; 2023-12-26 13:30)
DX: H25.011 Cortical age-related cataract, right eye (principal); K21.9 Gastro-esophageal reflux disease without esophagitis; Z98.42 Cataract extraction status, left eye
CPT/HCPCS: 66984; 00123; V2632; J2003

== ENCOUNTER 2024-01-14 12:50 | Outpatient (CLI) | payer MEDICARE, SELFPAY ==
--- NOTE | 2024-01-14 12:30 | DI.RAD_ITS ---
Exam(s) XR THORACIC SPINE COMPLETE EXAM: XR THORACIC SPINE COMPLETE T8 T CLINICAL HISTORY: evaluate pathology,THORACIC BACK PAIN, M54.6. TECHNIQUE: 2D digital imaging was performed. Three views. COMPARISON: CR XR thoracic spine complete from 07/01/2018 FINDINGS: BONES: The previously noted T8 compression fracture is unchanged. There is has been further compress ion of T9, moderate to severe. There are now moderate compression fractures T6 and T7, new from prio r. Degenerative disc changes are present. ALIGNMENT: Increased kyphosis. No significant scoliosis.. SOFT TISSUE: Visualized lungs are clear. IMPRESSION: Compression fracture from T6 through T9. DATA REPOSITORY: RADIATION DOSE DELIVERED:
--- NOTE | 2024-01-14 13:24 | DI.RAD_ITS ---
Exam(s) XR LUMBAR SPINE COMPLETE EXAM: XR LUMBAR SPINE COMPLETE CLINICAL HISTORY: evaluate pathology,LUMBAR BACK PAIN, M54.50. TECHNIQUE: 2D digital imaging was performed. Five views. COMPARISON: CR LUMBAR SPINE COMPLETE from 09/21/2012 FINDINGS: BONES: No fracture or destructive lesion. Mild compression fractures are now seen at L1, L2 and L3. The L4 compression fracture appears unchanged. Prominent facet hypertrophy identified . DISKS: Endplate osteophytes throughout. Narrowing of the L5-S1 disc space. Remaining disc spaces ar e maintained. ALIGNMENT: Lumbar spinal alignment is within normal limits. No spondylolysis. No scoliosis. SOFT TISSUE: Normal. IMPRESSION: New mild compression fractures from L1 through L3. Stable mild L4 compression fracture. DATA REPOSITORY: RADIATION DOSE DELIVERED:
== END 2024-01-14 13:10 ==
PROVIDERS: PCP Nurse Practitioner Family; Visit Provider Nurse Practitioner Family
DX: S32.010A Wedge compression fracture of first lumbar vertebra, initial encounter for closed fracture (principal); X58.XXXA Exposure to other specified factors, initial encounter; S22.020A Wedge compression fracture of second thoracic vertebra, initial encounter for closed fracture
CPT/HCPCS: 72072; 72110

== ENCOUNTER 2024-03-01 03:19 | Outpatient (CLI) | payer MEDICARE, SELFPAY ==
[2024-03-01 12:55] LABS: ALT 21 U/L (14-59); AST 21 U/L (15-37); Albumin 3.8 g/dL (3.4-5.0); Alkaline Phosphatase 91 U/L (46-116); Anion Gap 9.6 mmol/L (3-11); BUN 15 mg/dL (7-18); CO2 29.4 mmol/L (21.0-32.0); CREATININE 0.7 mg/dL (0.55-1.02); Calcium 9.1 mg/dL (8.5-10.1); Chloride 101 mmol/L (98-107); Glucose 93 mg/dL (74-106); Potassium 4.1 mmol/L (3.5-5.1); Sodium 140 mmol/L (136-145); TSH (W/Ref FT4) 3.74 uIU/mL (0.36-3.74); Total Protein 6.9 g/dL (6.4-8.2); Vitamin D 25 Total 42.5 ng/mL (30-100)
[2024-03-01 18:22] LABS: Parathyroid Hormone,Intact 37.5 pg/mL (19.0-88.0)
[2024-03-02 09:36] LABS: Calcium (Random Urine) 6.3 mg/dL (See Note)
== END 2024-03-01 03:20 | disposition home or self-care (01) ==
LOC: LOS 03:19
PROVIDERS: PCP Nurse Practitioner Family; Visit Provider Family Medicine
DX: M81.0 Age-related osteoporosis without current pathological fracture (principal); N18.9 Chronic kidney disease, unspecified; E03.9 Hypothyroidism, unspecified
CPT/HCPCS: 36415; 80053; 82306; 82340; 83970; 84443

== ENCOUNTER 2024-11-29 07:55 | Outpatient (CLI) | payer MEDICARE, SELFPAY ==
--- NOTE | 2024-11-29 10:15 | RT.EKG_ITS ---
APPROVED REPORT Exam: Resting ECG Reason for Exam: CAD Patient Location: O HR:68 bpm ECG Measurements Heart Rate 68 AXIS ME 158 P -26 QRSd 81 QRS -22 QT 382 T 21 QTc 407 Conclusion Sinus rhythm...normal P axis, V-rate 50- 99 Low voltage, precordial leads...precordial leads <1.0mV Left ventricular hypertrophy...multiple voltage criteria
== END 2024-11-29 07:56 | disposition home or self-care (01) ==
PROVIDERS: PCP Nurse Practitioner Family; Visit Provider Registered Nurse
DX: I10 Essential (primary) hypertension (principal); I21.4 Non-ST elevation (NSTEMI) myocardial infarction; I51.7 Cardiomegaly
CPT/HCPCS: 93010

== ENCOUNTER → 2024-11-29 10:16 | Outpatient (BNVA) | payer MEDICARE, SELFPAY | PROVIDERS: PCP Nurse Practitioner Family; Referring Provider Nurse Practitioner Family; Visit Provider Registered Nurse | DX: I25.10 Atherosclerotic heart disease of native coronary artery without angina pectoris (principal); I10 Essential (primary) hypertension; I21.4 Non-ST elevation (NSTEMI) myocardial infarction; R06.00 Dyspnea, unspecified; Z79.02 Long term (current) use of antithrombotics/antiplatelets; Z79.899 Other long term (current) drug therapy | CPT/HCPCS: 99214; 93005 ==

== ENCOUNTER 2024-12-02 04:23 | Outpatient (CLI) | payer MEDICARE, SELFPAY ==
--- NOTE | 2024-12-02 06:15 | DI.US_ITS ---
APPROVED REPORT EXAM: Comprehensive 2D, Doppler, and color-flow Echocardiogram Patient Location: Out-Patient Developmental Therapist: Carin Garcia RDCS (AE) Indications: Dyspnea on exertion, CAD, HTN Other Information Study Quality: Adequate Conclusion Normal left ventricular wall thickness and chamber size. Ejection fraction is 55%. Wall motion is normal Normal right ventricular size and function Both atria are normal in size Mild mitral annular calcification. Mild mitral regurgitation Estimated right ventricular systolic pressure is 32 mmHg Wall motion Left Ventricle The left ventricle is normal size. The left ventricular systolic function is normal. The left ventricular ejection fraction is within the normal range. There is normal left ventricular wall thickness. There is normal LV segmental wall motion. There is no ventricular septal defect visualized. LVEF is 55%. Right Ventricle Right ventricle is grossly normal in size. Right ventricular systolic function is grossly normal. Atria The left atrium size is normal. The right atrium size is normal. The interatrial septum is intact with no evidence for an atrial septal defect. Aortic Valve The aortic valve is normal in structure. Aortic valve is trileaflet. There is no aortic valvular stenosis. No aortic regurgitation is present. Mitral Valve Mild mitral annular calcification. No evidence of mitral valve stenosis. Mild mitral regurgitation. Tricuspid Valve The tricuspid valve is normal in structure. There is no tricuspid valve stenosis. Trace to mild tricuspid regurgitation. The RVSP is 31.6 mmHg. Pulmonic Valve The pulmonary valve is normal in structure. There is no pulmonic valvular stenosis. There is no pulmonic valvular regurgitation. Great Vessels The aortic root is normal in size. The ascending aorta is normal in size. Aortic arch is normal in caliber. IVC is normal in size and collapses >50% with inspiration. Pericardium There is no pericardial effusion. 2D Dimensions IVSD d PLAX 0.99 cm F: 0.6-1.0 Ao Root d 3.09 cm F: 2.7 - 3.3 LVPW d PLAX 0.98 cm F: 0.6 - 1.0 Ao Asc Diam d 3.02 cm F: 2.3 - 3.1 LVID d PLAX 3.96 cm F: 3.8 - 5.2 LVDs 2.80 cm F: 2.2 - 3.5 LV EF Teichholz 56.8 % FS 29.29 % LV EDV (Teich) 68.4 mL LV ESV (Teich) 29.6 mL Auto EF LV EDV A4C 81.4 mL LV EDV A2C 103.1 mL LV EDV BP 95.1 mL LV ESV A4C 35.9 mL LV ESV A2C 46.1 mL LV ESV BP 43.4 mL LVEF(%) A4C 55.8 % LVEF(%) A2C 55.2 % LVEF(%) BP 54.3 % LV SV A4C 45.5 ml LV SV A2C 57.0 ml LV SV BP 51.6 ml LV CO A4C 2.6 L/min LV CO A2C 3.6 L/min LV CO BP 3.1 L/min HR A4C 57.97 BPM HR A2C 63.83 BPM LV EDV Index (BP) LA Volume LA Length A4C 4.7 cm LA Length A2C 4.8 cm LA Area A4C s 16.94 cm2 LA Area A2C s 18.39 cm2 LA Vol A4C A-L 52.05 mL LA Vol A2C A-L 59.85 mL LA Vol Biplane A-L 56.5 mL LA Vol/BSA A4C A-L LA Vol/BSA A2C A-L LA Vol/BSA BP A-L 35.5 mL/m2 LA Vol A4C MOD 50.7 mL LA Vol A2C MOD 52.5 mL LA Vol BP MOD 51.7 mL LV Diastology MV E' medial 0.059 (>0.07 m/s) MV E Vmax 0.65 (0.4-1.3 m/s) MV E/E' MED 11.07 (<14) MV A Vmax 1.05 (0.4-1.3 m/s) MV E' lateral 0.083 (>0.1 m/s) E/A Ratio 0.6 MV E/E' LAT 7.86 (<14) MV E' Average 0.071 m/s MV E/E'(average) 9.19 Aortic Valve AoV Vmax 1.09 m/s LVOT Vmax 0.80 m/s AoV Peak Grad 4.8 mmHg LVOT Peak Grad 2.6 mmHg AoV Area (Vmax) 2.28 cm2 LVOT VTI 0.211 m AoV VTI 0.280 m LVOT Mean Grad 1.6 mmHg AoV Mean Tong. 0.77 m/s LVOT SV 65.48 mL AoV Mean Grad 2.7 mmHg LVOT Diam s 1.95 cm AoV Area (VTI) 2.34 cm2 AV Regurg Peak Gr. 4.75 mmHg Velocity Ratio 0.73 Mitral Valve MV DT 244 (160-240 msec) MV Vmax TIPS 1.05 m/s MV Mean Grad 1.7 (<2mmHg) MV VTI 0.319 m Pulmonary Valve PV Vmax 0.89 (0.5-1.5 m/s) RVOT Vmax 0.62 m/s PV Peak Grad 3.2 mmHg RVOT Peak Gr. 1.6 mmHg PV Mean Tong 0.61 m/s RVOT VTI 0.160 m PV Mean Grad 1.7 mmHg RVOT Mean Gr. 0.9 mmHg Tricuspid Valve RA Pressure 3.00 mmHg TR Vmax 2.67 m/s TV S' 0.12 m/s TR Peak Grad 28.5 mmHg RVSP (TR) 31.6 mmHg
== END 2024-12-02 04:43 ==
LOC: DI 04:23
PROVIDERS: PCP Nurse Practitioner Family; Visit Provider Registered Nurse
DX: R06.00 Dyspnea, unspecified (principal); I34.0 Nonrheumatic mitral (valve) insufficiency
CPT/HCPCS: 93306

== ENCOUNTER → 2024-12-08 14:11 | Outpatient (BNVA) | payer MEDICARE, SELFPAY | PROVIDERS: PCP Nurse Practitioner Family; Referring Provider Nurse Practitioner Family; Visit Provider Registered Nurse | DX: I25.10 Atherosclerotic heart disease of native coronary artery without angina pectoris (principal); Z79.01 Long term (current) use of anticoagulants; Z79.899 Other long term (current) drug therapy | CPT/HCPCS: 99214 ==